=== PATIENT | female | born 1955 | race Caucasian/White ===

== ENCOUNTER 2018-09-22 03:06 | Observation (INO) ==
[2018-09-22] MEDS ORDERED: SODIUM CHLORIDE 0.9% 1,000 ML IV STA (03:38)
[2018-09-22 04:23] LABS: Basophils % 0.3 % (0.0-0.8); Eosinophils # 0.2 10*3/uL (0.0-0.87); Eosinophils % 1.7 % (0.00-10.9); Hematocrit 34.3 VOL% (35.7-47.0); Immature Granulocytes % 1.1 %; Immature Granulocytes Absolute 0.14 #; Lymphocytes # 3.5 10*3/uL (1.4-4.0); Lymphocytes % 27.7 % (21.3-54.2); Mean Corpuscular Volume 117.5 FL (87-102); Mean Platelet Volume 10.8 FL (9.6-12.0); Monocytes % 5.1 % (1.7-12.7); Neutrophils % 64.1 % (38.7-73.9); Platelet Count 101 T/CUMM (130-400); Red Blood Count 2.92 MC/CUMM (3.8-5.5); Red Cell Distribution Width 15.3 % (9.3-17.3); White Blood Count 12.8 T/CUMM (4-12)
[2018-09-22 04:27] LABS: INR 1.1; PT Patient Result 11.4 SECS; Partial Thromboplastin Time 31.3 SECS (0-40)
[2018-09-22 04:36] LABS: Albumin 3.3 G/DL (3.4-5.0); Bilirubin,Total 1.2 MG/DL (0.2-1.0); Calcium 8.8 MG/DL (8.5-10.1); Total Protein 7.8 G/DL (6.4-8.3)
[2018-09-22] MEDS ORDERED: POTASSIUM CHLORIDE 20 MEQ TABLET PO STA (04:40)
[2018-09-22] MEDS ORDERED: MORPHINE 4 MG/1 ML VIAL IV PRN (05:53)
[2018-09-22] MEDS ORDERED: POTASSIUM CHLORIDE RIDER 10 MEQ in PREMIX 1 EACH IV PRN (05:53)
[2018-09-22] MEDS ORDERED: ONDANSETRON 4 MG/2 ML VIAL IV PRN (05:53)
[2018-09-22 06:22] LABS: Albumin 3.5 G/DL (3.4-5.0); Bilirubin,Direct 0.66 MG/DL (0.0-0.20); Bilirubin,Indirect 0.5 MG/DL (0.0-1.0); Bilirubin,Total 1.2 MG/DL (0.2-1.0); Total Protein 7.8 G/DL (6.4-8.3)
[2018-09-22 07:10] LABS: Hepatitis B Core IgM Quant 0.09 Index; Hepatitis B Surface Ag Quant < 0.10 Index; Hepatitis B Surface Ag Result Negative (Negative); Hepatitis C Virus Ab Result Negative (Negative)
[2018-09-22] MEDS: SODIUM CHLORIDE 0.9% 1,000 ML IV SCH ×2 (07:49→20:43)
[2018-09-22 08:27] LABS: Basophils # 0.1 10*3/uL (0.0-0.2); Basophils % 0.6 % (0.0-0.8); Eosinophils # 0.2 10*3/uL (0.0-0.87); Eosinophils % 1.8 % (0.00-10.9); Hematocrit 32.4 VOL% (35.7-47.0); Immature Granulocytes % 1.1 %; Immature Granulocytes Absolute 0.11 #; Lymphocytes # 2.3 10*3/uL (1.4-4.0); Lymphocytes % 23.1 % (21.3-54.2); Mean Corpuscular Volume 118.7 FL (87-102); Mean Platelet Volume 10.4 FL (9.6-12.0); Monocytes % 5.9 % (1.7-12.7); Neutrophils % 67.5 % (38.7-73.9); Platelet Count 92 T/CUMM (130-400); Red Blood Count 2.73 MC/CUMM (3.8-5.5); Red Cell Distribution Width 15.4 % (9.3-17.3); White Blood Count 10.1 T/CUMM (4-12)
[2018-09-22] MEDS ORDERED: LORazepam 2 MG/1 ML VIAL IV PRN (08:58)
[2018-09-22 09:21] LABS: Albumin 3.2 G/DL (3.4-5.0); Bilirubin,Direct 0.69 MG/DL (0.0-0.20); Bilirubin,Indirect 0.6 MG/DL (0.0-1.0); Bilirubin,Total 1.3 MG/DL (0.2-1.0); Calcium 8.5 MG/DL (8.5-10.1); Osmolality,Calculated 276.4 MOS/KG (273-304); Total Protein 7.2 G/DL (6.4-8.3)
[2018-09-22] MEDS: THIAMINE 100 MG TABLET PO SCH (09:41)
[2018-09-22] MEDS: PANTOPRAZOLE 40 MG VIAL IV SCH ×2 (09:41→20:43)
[2018-09-22] MEDS: MULTIVITAMIN (CENTRUM) TABLET PO SCH (09:41)
[2018-09-22] MEDS: NICOTINE 21 MG/24 HR PATCH TRANSDERM PRN (09:41)
[2018-09-22] MEDS: FOLIC ACID 1 MG TABLET PO SCH (09:41)
[2018-09-22 10:51] LABS: % Iron Saturation 39.5 % (18-50)
[2018-09-22 11:11] LABS: Barbiturates Screen,Urine Negative (Negative); Benzodiazepines Screen,Urine Negative (Negative); Cannabinoid Screen,Urine Negative (Negative); Opiate Screen,Urine Negative (Negative); Phencyclidine Screen,Urine Negative (Negative)
[2018-09-22] MEDS: POLYETHYLENE GLYCOL POWDER 17 GM PACK PO SCH ×2 (15:04→20:44)
[2018-09-22 15:50] LABS: Basophils % 0.3 % (0.0-0.8); Eosinophils # 0.1 10*3/uL (0.0-0.87); Eosinophils % 1.2 % (0.00-10.9); Hematocrit 32.7 VOL% (35.7-47.0); Hemoglobin 11.5 GM/DL (12.0-16.0); Immature Granulocytes % 0.9 %; Immature Granulocytes Absolute 0.09 #; Lymphocytes # 1.6 10*3/uL (1.4-4.0); Mean Corpuscular HGB Conc 35.2 GM/DL (32-36); Mean Corpuscular Volume 117.6 FL (87-102); Mean Platelet Volume 11.2 FL (9.6-12.0); Monocytes % 6.1 % (1.7-12.7); Neutrophils % 75.5 % (38.7-73.9); Platelet Count 87 T/CUMM (130-400); Red Blood Count 2.78 MC/CUMM (3.8-5.5); Red Cell Distribution Width 15.3 % (9.3-17.3); White Blood Count 10.2 T/CUMM (4-12)
[2018-09-22 16:27] LABS: Lymphocytes 19 % (20-55); Platelet Estimate Decreased; Segmented Neutrophils 74 % (50-85); Total Cells Counted 100
[2018-09-22 16:33] LABS: Macrocytosis 1+
[2018-09-22 16:35] LABS: Target Cells Slight
[2018-09-22 21:20] LABS: Basophils % 0.3 % (0.0-0.8); Eosinophils # 0.1 10*3/uL (0.0-0.87); Eosinophils % 1.4 % (0.00-10.9); Hematocrit 33.1 VOL% (35.7-47.0); Hemoglobin 11.1 GM/DL (12.0-16.0); Immature Granulocytes % 1.1 %; Lymphocytes # 1.9 10*3/uL (1.4-4.0); Mean Corpuscular HGB Conc 33.5 GM/DL (32-36); Mean Corpuscular Volume 118.6 FL (87-102); Mean Platelet Volume 10.6 FL (9.6-12.0); Neutrophils % 71.2 % (38.7-73.9); Platelet Count 83 T/CUMM (130-400); Red Blood Count 2.79 MC/CUMM (3.8-5.5); Red Cell Distribution Width 15.4 % (9.3-17.3); White Blood Count 9.3 T/CUMM (4-12)
[2018-09-22 21:40] LABS: Eosinophils 1 % (0-10); Lymphocytes 24 % (20-55); Segmented Neutrophils 68 % (50-85); Total Cells Counted 100
[2018-09-22 21:42] LABS: Macrocytosis 1+; Platelet Estimate Decreased
[2018-09-22 21:43] LABS: Hypochromasia Slight
[2018-09-23 07:41] LABS: Basophils % 0.5 % (0.0-0.8); Eosinophils # 0.2 10*3/uL (0.0-0.87); Eosinophils % 1.7 % (0.00-10.9); Hematocrit 32.4 VOL% (35.7-47.0); Immature Granulocytes Absolute 0.09 #; Lymphocytes % 23.4 % (21.3-54.2); Mean Corpuscular Volume 119.1 FL (87-102); Mean Platelet Volume 10.9 FL (9.6-12.0); Monocytes % 6.7 % (1.7-12.7); Neutrophils % 66.7 % (38.7-73.9); Platelet Count 86 T/CUMM (130-400); Red Blood Count 2.72 MC/CUMM (3.8-5.5); Red Cell Distribution Width 15.5 % (9.3-17.3); White Blood Count 8.6 T/CUMM (4-12)
[2018-09-23 08:01] LABS: Calcium 8.6 MG/DL (8.5-10.1); Osmolality,Calculated 269.8 MOS/KG (273-304)
[2018-09-23] MEDS: SODIUM CHLORIDE 0.9% 1,000 ML IV SCH ×2 (08:54→21:28)
[2018-09-23] MEDS: FOLIC ACID 1 MG TABLET PO SCH (08:54)
[2018-09-23] MEDS: THIAMINE 100 MG TABLET PO SCH (08:55)
[2018-09-23] MEDS: MULTIVITAMIN (CENTRUM) TABLET PO SCH (08:55)
[2018-09-23] MEDS: BISACODYL 5 MG TABLET PO SCH ×2 (08:55→16:21)
[2018-09-23] MEDS: NICOTINE 21 MG/24 HR PATCH TRANSDERM PRN (08:55)
[2018-09-23] MEDS: PANTOPRAZOLE 40 MG VIAL IV SCH ×2 (08:57→21:24)
[2018-09-23] MEDS: POLYETHYLENE GLYCOL POWDER 17 GM PACK PO SCH (09:00)
[2018-09-23] MEDS ORDERED: LORazepam 2 MG/1 ML VIAL IV PRN (09:09)
[2018-09-23] MEDS ORDERED: POLYETHYLENE GLYCOL POWDER 255 GM BOTTLE PO ONE (18:00)
[2018-09-23] MEDS ORDERED: MAGNESIUM CITRATE 300 ML BOTTLE PO ONE (21:00)
[2018-09-24] MEDS: BISACODYL 5 MG TABLET PO SCH (00:40)
[2018-09-24] MEDS ORDERED: MIDAZOLAM 2 MG/2 ML VIAL ONE (08:28)
[2018-09-24] MEDS ORDERED: PROPOFOL 200 MG/20 ML VIAL IV ONE (09:00)
[2018-09-24] MEDS ORDERED: LIDOCAINE 100 MG/5 ML SYRINGE ONE (09:00)
[2018-09-24] MEDS: SODIUM CHLORIDE 0.9% 1,000 ML IV SCH (09:18)
[2018-09-24] MEDS: PANTOPRAZOLE 40 MG VIAL IV SCH (09:57)
[2018-09-24] MEDS: THIAMINE 100 MG TABLET PO SCH (09:59)
[2018-09-24] MEDS: MULTIVITAMIN (CENTRUM) TABLET PO SCH (09:59)
[2018-09-24] MEDS: FOLIC ACID 1 MG TABLET PO SCH (09:59)
[2018-09-24] MEDS ORDERED: DIAZEPAM 5 MG TABLET PO ONE (10:38)
[2018-09-24 11:38] VITALS: BP 132/54
[2018-09-26 14:51] LABS: Mitochondrial Antibody (M2) <0.1 U
== END 2018-09-24 15:27 | disposition home or self-care (01) ==
LOC: EDBD → EDUNIT# → N.EDINP 03:06 → N.ED 03:06 → N.5E 06:09
PROVIDERS: ADMIT Internal Medicine; ATTEND Internal Medicine

== ENCOUNTER 2019-02-13 06:21 | Inpatient (IN) ==
[2019-02-13] MEDS ORDERED: ONDANSETRON 4 MG/2 ML VIAL IV STA (07:07)
[2019-02-13] MEDS ORDERED: PANTOPRAZOLE 40 MG VIAL IV STA (07:07)
[2019-02-13] MEDS ORDERED: SODIUM CHLORIDE 0.9% 1,000 ML IV STA (07:07)
[2019-02-13 07:17] LABS: Basophils % 0.3 % (0.0-0.8); Eosinophils # 0.2 10*3/uL (0.0-0.87); Eosinophils % 1.8 % (0.00-10.9); Hematocrit 24.1 VOL% (35.7-47.0); Immature Granulocytes % 0.5 %; Immature Granulocytes Absolute 0.05 #; Lymphocytes # 2.2 10*3/uL (1.4-4.0); Lymphocytes % 22.7 % (21.3-54.2); Mean Corpuscular HGB Conc 33.2 GM/DL (32-36); Mean Corpuscular Volume 116.4 FL (87-102); Mean Platelet Volume 11.4 FL (9.6-12.0); Neutrophils % 66.7 % (38.7-73.9); Platelet Count 108 T/CUMM (130-400); Red Blood Count 2.07 MC/CUMM (3.8-5.5); Red Cell Distribution Width 14.3 % (9.3-17.3); White Blood Count 9.7 T/CUMM (4-12)
[2019-02-13 07:29] LABS: Albumin 2.8 G/DL (3.4-5.0); Bilirubin,Total 2.3 MG/DL (0.2-1.0); Calcium 8.7 MG/DL (8.5-10.1); Osmolality,Calculated 285.4 MOS/KG (273-304); Total Protein 6.6 G/DL (6.4-8.3)
[2019-02-13 07:36] LABS: Hypochromasia 1+; Platelet Estimate Decreased
[2019-02-13] MEDS ORDERED: ONDANSETRON 4 MG/2 ML VIAL IV PRN (09:07)
[2019-02-13] MEDS ORDERED: NICOTINE 21 MG/24 HR PATCH TRANSDERM PRN (09:07)
[2019-02-13] MEDS ORDERED: LORazepam 1 MG TABLET PO PRN (09:12)
[2019-02-13 09:41] LABS: % Iron Saturation 86.9 % (18-50)
[2019-02-13 09:57] LABS: INR 1.5; PT Patient Result 16.1 SECS (9.6-12.2); Partial Thromboplastin Time 29.2 SECS (20.8-36.0)
[2019-02-13 10:22] LABS: Folate 3.2 NG/ML (5.4-24.0)
[2019-02-13] MEDS ORDERED: AMOXICILLIN 500 MG CAPSULE PO SCH ×2 (14:00→21:00)
[2019-02-13] MEDS: PANTOPRAZOLE 40 MG VIAL IV SCH ×2 (14:39→21:44)
[2019-02-13] MEDS: GABAPENTIN 300 MG CAPSULE PO SCH ×2 (14:42→21:44)
[2019-02-13] MEDS: THIAMINE 200 MG/2 ML VIAL IV SCH (14:44)
[2019-02-13] MEDS ORDERED: INFLUENZA VIRUS VACCINE 0.5 ML SYRINGE IM ONE (14:54)
[2019-02-13 15:29] LABS: Hematocrit 27.4 VOL% (35.7-47.0)
[2019-02-13] MEDS ORDERED: SODIUM CHLORIDE 0.9% 1,000 ML IV PRN (18:55)
[2019-02-13] MEDS ORDERED: CLARITHROMYCIN 500 MG TABLET PO SCH (21:00)
[2019-02-13] MEDS: ZALEPLON 5 MG CAPSULE PO SCH (21:44)
[2019-02-13 22:13] LABS: Hematocrit 25.7 VOL% (35.7-47.0); Hemoglobin 8.6 GM/DL (12.0-16.0)
[2019-02-14 05:20] LABS: Basophils # 0.1 10*3/uL (0.0-0.2); Basophils % 0.4 % (0.0-0.8); Eosinophils # 0.4 10*3/uL (0.0-0.87); Eosinophils % 2.7 % (0.00-10.9); Hematocrit 24.8 VOL% (35.7-47.0); Hemoglobin 8.3 GM/DL (12.0-16.0); Immature Granulocytes % 0.6 %; Immature Granulocytes Absolute 0.09 #; Lymphocytes # 3.4 10*3/uL (1.4-4.0); Lymphocytes % 24.3 % (21.3-54.2); Mean Corpuscular HGB Conc 33.5 GM/DL (32-36); Mean Corpuscular Volume 103.3 FL (87-102); Mean Platelet Volume 11.9 FL (9.6-12.0); Monocytes % 5.3 % (1.7-12.7); Neutrophils % 66.7 % (38.7-73.9); Platelet Count 105 T/CUMM (130-400); Red Cell Distribution Width 22.7 % (9.3-17.3); White Blood Count 13.9 T/CUMM (4-12)
[2019-02-14 05:36] LABS: Alanine Aminotransferase < 9 U/L (13-56); Albumin 2.7 G/DL (3.4-5.0); Alkaline Phosphatase 112 U/L (45-117); Aspartate Amino Transferase 35 U/L (0-37); Blood Urea Nitrogen 57 MG/DL (7-18); Calcium 8.7 MG/DL (8.5-10.1); Estimated Glom Filtration Rate 36 ML/MIN; Glucose 100 MG/DL (74-106); Osmolality,Calculated 301.8 MOS/KG (273-304); Total Protein 5.7 G/DL (6.4-8.3)
[2019-02-14 06:06] LABS: Platelet Estimate Decreased
[2019-02-14 06:07] LABS: Polychromasia Few
[2019-02-14] MEDS: LACTATED RINGERS 1,000 ML IV SCH (08:50)
[2019-02-14] MEDS ORDERED: LACTULOSE 20 GM/30 ML UDCUP PO SCH (09:00)
[2019-02-14] MEDS ORDERED: PHENYLEPHRINE 1 MG/10 ML SYRINGE IV ONE (09:24)
[2019-02-14] MEDS ORDERED: ETOMIDATE 20 MG/10 ML VIAL IV ONE (09:24)
[2019-02-14] MEDS ORDERED: PROPOFOL 200 MG/20 ML VIAL IV ONE (09:24)
[2019-02-14] MEDS ORDERED: LIDOCAINE 100 MG/5 ML SYRINGE ONE (09:24)
[2019-02-14] MEDS ORDERED: MAGNESIUM SULF RIDER 2 GM in PREMIX 1 EACH IV PRN (10:39)
[2019-02-14] MEDS ORDERED: MAGNESIUM SULF RIDER 4 GM in PREMIX 1 EACH IV PRN (10:39)
[2019-02-14] MEDS: MULTIVITAMIN (CENTRUM) TABLET PO SCH (10:48)
[2019-02-14] MEDS: THIAMINE 200 MG/2 ML VIAL IV SCH (10:48)
[2019-02-14] MEDS: FOLIC ACID 1 MG TABLET PO SCH (10:48)
[2019-02-14] MEDS: GABAPENTIN 300 MG CAPSULE PO SCH ×3 (10:48→21:41)
[2019-02-14] MEDS: PANTOPRAZOLE 40 MG VIAL IV SCH ×2 (10:48→21:41)
[2019-02-14] MEDS: SODIUM CHLORIDE 0.9% 1,000 ML IV SCH (10:52)
[2019-02-14] MEDS: POTASSIUM CHLORIDE RIDER 10 MEQ in PREMIX 1 EACH IV SCH ×2 (10:53→12:37)
[2019-02-14 11:34] LABS: Hematocrit 22.7 VOL% (35.7-47.0); Hemoglobin 7.4 GM/DL (12.0-16.0)
[2019-02-14 11:45] LABS: INR 1.2; PT Patient Result 13.1 SECS (9.6-12.2)
[2019-02-14 11:47] LABS: INR 1.2; PT Patient Result 12.9 SECS (9.6-12.2)
[2019-02-14 15:21] LABS: Hematocrit 22.2 VOL% (35.7-47.0); Hemoglobin 7.3 GM/DL (12.0-16.0)
[2019-02-14] MEDS ORDERED: SODIUM CHLORIDE 0.9% 1,000 ML IV PRN ×2 (15:21→22:24)
[2019-02-14 21:01] LABS: Hematocrit 21.1 VOL% (35.7-47.0); Hemoglobin 6.9 GM/DL (12.0-16.0)
[2019-02-14] MEDS: ZALEPLON 5 MG CAPSULE PO SCH (21:41)
[2019-02-14] MEDS: LACTULOSE 20 GM/30 ML UDCUP PO SCH (21:41)
[2019-02-15 05:10] LABS: Hematocrit 24.1 VOL% (35.7-47.0); Hemoglobin 7.9 GM/DL (12.0-16.0)
[2019-02-15 05:12] LABS: Basophils % 0.4 % (0.0-0.8); Eosinophils # 0.3 10*3/uL (0.0-0.87); Eosinophils % 3.8 % (0.00-10.9); Hematocrit 24.5 VOL% (35.7-47.0); Hemoglobin 7.9 GM/DL (12.0-16.0); Immature Granulocytes % 0.4 %; Immature Granulocytes Absolute 0.03 #; Lymphocytes # 2.4 10*3/uL (1.4-4.0); Lymphocytes % 31.2 % (21.3-54.2); Mean Corpuscular HGB Conc 32.2 GM/DL (32-36); Mean Corpuscular Volume 103.8 FL (87-102); Mean Platelet Volume 11.3 FL (9.6-12.0); Monocytes % 7.3 % (1.7-12.7); Neutrophils % 56.9 % (38.7-73.9); Platelet Count 74 T/CUMM (130-400); Red Blood Count 2.36 MC/CUMM (3.8-5.5); Red Cell Distribution Width 22.3 % (9.3-17.3); White Blood Count 7.8 T/CUMM (4-12)
[2019-02-15 05:18] LABS: INR 1.2
[2019-02-15 05:36] LABS: Albumin 2.8 G/DL (3.4-5.0); Bilirubin,Total 1.4 MG/DL (0.2-1.0); Calcium 8.2 MG/DL (8.5-10.1); Total Protein 5.8 G/DL (6.4-8.3)
[2019-02-15 05:53] LABS: Hypochromasia 1+; Platelet Estimate Decreased
[2019-02-15] MEDS: LACTATED RINGERS 1,000 ML IV SCH (08:11)
[2019-02-15] MEDS: THIAMINE 200 MG/2 ML VIAL IV SCH (09:46)
[2019-02-15] MEDS: LACTULOSE 20 GM/30 ML UDCUP PO SCH (09:46)
[2019-02-15] MEDS: GABAPENTIN 300 MG CAPSULE PO SCH ×2 (09:46→15:55)
[2019-02-15] MEDS: FOLIC ACID 1 MG TABLET PO SCH (09:46)
[2019-02-15] MEDS: SODIUM CHLORIDE 0.9% 1,000 ML IV SCH (09:52)
[2019-02-15] MEDS: MULTIVITAMIN (CENTRUM) TABLET PO SCH (09:53)
[2019-02-15 09:54] LABS: Hematocrit 27.7 VOL% (35.7-47.0)
[2019-02-15] MEDS: PANTOPRAZOLE 40 MG VIAL IV SCH (11:30)
[2019-02-15 11:50] VITALS: BP 97/45
[2019-02-15] MEDS ORDERED: PANTOPRAZOLE 40 MG TABLET PO SCH (19:00)
== END 2019-02-15 15:21 | disposition home or self-care (01) | DRG 369 ==
LOC: EDBD → EDUNIT# → N.ED 06:21 → N.EDINP 09:07 → N.4E 14:13
PROVIDERS: ADMIT Internal Medicine; ATTEND Internal Medicine

== ENCOUNTER 2020-04-01 04:57 | Inpatient (IN) ==
[2020-04-01] MEDS ORDERED: MEPERIDINE 25 MG/1 ML VIAL IV STA (05:10)
[2020-04-01] MEDS ORDERED: KETOROLAC 30 MG/1 ML VIAL IV STA (05:10)
[2020-04-01] MEDS ORDERED: ONDANSETRON 4 MG/2 ML VIAL IV STA (05:10)
[2020-04-01] MEDS ORDERED: NALOXONE 0.4 MG/ML VIAL ONE (06:55)
[2020-04-01] MEDS ORDERED: NALOXONE 0.4 MG/ML VIAL IV STA (06:57)
[2020-04-01] MEDS ORDERED: SODIUM CHLORIDE 0.9% 1,000 ML IV STA (07:11)
[2020-04-01 07:49] LABS: Albumin 2.3 G/DL (3.4-5.0); Bilirubin,Total 2.5 MG/DL (0.2-1.0); Calcium 7.5 MG/DL (8.5-10.1); Osmolality,Calculated 288.5 MOS/KG (273-304); Total Protein 5.9 G/DL (6.4-8.3)
[2020-04-01 08:06] LABS: Basophils % 0.1 % (0.0-0.8); Eosinophils # 0.1 10*3/uL (0.0-0.87); Eosinophils % 0.9 % (0.00-10.9); Immature Granulocytes % 1.2 %; Immature Granulocytes Absolute 0.14 #; Lymphocytes # 1.2 10*3/uL (1.4-4.0); Lymphocytes % 10.4 % (21.3-54.2); Mean Corpuscular HGB Conc 32.3 GM/DL (32-36); Mean Corpuscular Volume 109.2 FL (87-102); Mean Platelet Volume 11.8 FL (9.6-12.0); Monocytes % 11.1 % (1.7-12.7); Neutrophils % 76.3 % (38.7-73.9); Red Blood Count 1.42 MC/CUMM (3.8-5.5); Red Cell Distribution Width 18.5 % (9.3-17.3); White Blood Count 11.8 T/CUMM (4-12)
[2020-04-01 08:07] LABS: INR 1.6; PT Patient Result 16.4 SECS (9.8-11.9); Partial Thromboplastin Time 39.2 SECS (23.9-33.8)
[2020-04-01 08:12] LABS: Hematocrit 15.5 VOL% (35.7-47.0); Platelet Count 56 T/CUMM (130-400)
[2020-04-01 08:25] LABS: Band Neutrophils 5 % (0-10); Hypochromasia 1+; Lymphocytes 9 % (20-55); Segmented Neutrophils 82 % (50-85); Total Cells Counted 100
[2020-04-01 08:26] LABS: Anisocytosis 1+; Microcytosis 1+; Ovalocytes Slight; Platelet Estimate Decreased
[2020-04-01] MEDS ORDERED: SODIUM CHLORIDE 0.9% 1,000 ML IV PRN (08:29)
[2020-04-01] MEDS ORDERED: MORPHINE 4 MG/1 ML VIAL IV PRN (09:25)
[2020-04-01] MEDS ORDERED: ONDANSETRON 4 MG/2 ML VIAL IV PRN (09:25)
[2020-04-01] MEDS ORDERED: DOPamine 800 MG/250 ML PREMIX IV ONE (09:52)
[2020-04-01] MEDS: DOPamine 800 MG/250 ML PREMIX IV PRN (10:29)
[2020-04-01] MEDS: LACTATED RINGERS 1,000 ML IV SCH ×2 (10:32→23:58)
[2020-04-01] MEDS: PANTOPRAZOLE 40 MG VIAL IV SCH ×2 (10:32→23:00)
[2020-04-01 14:53] LABS: Basophils % 0.1 % (0.0-0.8); Eosinophils # 0.1 10*3/uL (0.0-0.87); Eosinophils % 0.3 % (0.00-10.9); Hematocrit 27.6 VOL% (35.7-47.0); Immature Granulocytes % 1.6 %; Immature Granulocytes Absolute 0.37 #; Lymphocytes # 1.9 10*3/uL (1.4-4.0); Lymphocytes % 8.4 % (21.3-54.2); Mean Corpuscular HGB Conc 32.6 GM/DL (32-36); Mean Corpuscular Volume 100.4 FL (87-102); Mean Platelet Volume 12.1 FL (9.6-12.0); Monocytes % 9.7 % (1.7-12.7); Neutrophils % 79.9 % (38.7-73.9); Platelet Count 71 T/CUMM (130-400); Red Blood Count 2.75 MC/CUMM (3.8-5.5); Red Cell Distribution Width 18.8 % (9.3-17.3); White Blood Count 22.9 T/CUMM (4-12)
[2020-04-01 16:51] LABS: Bacteria,Urine Many /HPF (Few); Bilirubin,Urine Negative (Negative); Blood, Urine Small mg/dL (Negative); Glucose,Urine (UA) Negative (Negative); Ketones,Urine Negative (Negative); Nitrite,Urine Negative (Negative); Protein,Urine Negative; Squamous Epithelial Cell,Urine Occasional /HPF (0-10); Urine Appearance CLOUDY (Clear); Urine Color Yellow (Yellow); Urine Specific Gravity 1.008 (1.001-1.035); Urine Urobilinogen < 2.0 EU/DL (0.2-1.0); WBC,Urine 26 /HPF (0-6)
[2020-04-01] MEDS ORDERED: SODIUM CHLORIDE 0.9% 100 ML IV ONE (16:51)
[2020-04-01] MEDS: cefTRIAXone 1,000 MG in SYRINGE 1 EACH IV SCH (16:59)
[2020-04-01] MEDS: LACTULOSE 20 GM/30 ML UDCUP PO SCH (23:00)
[2020-04-02 06:20] LABS: Basophils % 0.2 % (0.0-0.8); Eosinophils # 0.5 10*3/uL (0.0-0.87); Eosinophils % 2.5 % (0.00-10.9); Hematocrit 29.9 VOL% (35.7-47.0); Hemoglobin 9.9 GM/DL (12.0-16.0); Immature Granulocytes % 1.2 %; Immature Granulocytes Absolute 0.22 #; Lymphocytes # 1.9 10*3/uL (1.4-4.0); Lymphocytes % 10.1 % (21.3-54.2); Mean Corpuscular HGB Conc 33.1 GM/DL (32-36); Mean Corpuscular Volume 98.4 FL (87-102); Mean Platelet Volume 11.3 FL (9.6-12.0); Monocytes % 11.5 % (1.7-12.7); Neutrophils % 74.5 % (38.7-73.9); Red Blood Count 3.04 MC/CUMM (3.8-5.5); Red Cell Distribution Width 19.8 % (9.3-17.3); White Blood Count 19.1 T/CUMM (4-12)
[2020-04-02 06:22] LABS: Platelet Count 85 T/CUMM (130-400)
[2020-04-02 06:32] LABS: INR 1.5; PT Patient Result 15.9 SECS (9.8-11.9)
[2020-04-02 06:38] LABS: Hypochromasia 1+; Microcytosis 1+; Platelet Estimate Decreased
[2020-04-02 06:50] LABS: Albumin 2.7 G/DL (3.4-5.0); Bilirubin,Total 2.6 MG/DL (0.2-1.0); Calcium 8.3 MG/DL (8.5-10.1); Osmolality,Calculated 277.8 MOS/KG (273-304); Potassium 4.5 MMOL/L (3.5-5.1); Total Protein 6.9 G/DL (6.4-8.3)
[2020-04-02] MEDS: DOPamine 800 MG/250 ML PREMIX IV PRN ×2 (06:52→20:18)
[2020-04-02] MEDS ORDERED: VITAMIN E 400 UNIT CAPSULE PO SCH (09:00)
[2020-04-02] MEDS: LACTULOSE 20 GM/30 ML UDCUP PO SCH ×3 (10:48→21:04)
[2020-04-02] MEDS: PANTOPRAZOLE 40 MG VIAL IV SCH ×2 (10:48→21:03)
[2020-04-02] MEDS: MULTIVITAMIN (CENTRUM) TABLET PO SCH (10:48)
[2020-04-02] MEDS: THIAMINE 100 MG TABLET PO SCH (10:48)
[2020-04-02] MEDS: LACTATED RINGERS 1,000 ML IV SCH ×2 (13:52→19:01)
[2020-04-02] MEDS ORDERED: FUROSEMIDE 40 MG/4 ML VIAL IV ONE (16:35)
[2020-04-02] MEDS: cefTRIAXone 1,000 MG in SYRINGE 1 EACH IV SCH (17:30)
[2020-04-03 02:35] LABS: Hematocrit 28.8 VOL% (35.7-47.0); Hemoglobin 9.5 GM/DL (12.0-16.0)
[2020-04-03 04:20] LABS: Basophils % 0.2 % (0.0-0.8); Eosinophils # 0.3 10*3/uL (0.0-0.87); Eosinophils % 1.8 % (0.00-10.9); Hematocrit 28.3 VOL% (35.7-47.0); Hemoglobin 9.3 GM/DL (12.0-16.0); Immature Granulocytes % 1.3 %; Immature Granulocytes Absolute 0.23 #; Lymphocytes # 1.9 10*3/uL (1.4-4.0); Lymphocytes % 10.2 % (21.3-54.2); Mean Corpuscular HGB Conc 32.9 GM/DL (32-36); Mean Corpuscular Volume 98.6 FL (87-102); Mean Platelet Volume 11.6 FL (9.6-12.0); Monocytes % 8.9 % (1.7-12.7); Neutrophils % 77.6 % (38.7-73.9); Platelet Count 98 T/CUMM (130-400); Red Blood Count 2.87 MC/CUMM (3.8-5.5); Red Cell Distribution Width 19.9 % (9.3-17.3); White Blood Count 18.2 T/CUMM (4-12)
[2020-04-03 04:32] LABS: Albumin 2.5 G/DL (3.4-5.0); Bilirubin,Total 2.8 MG/DL (0.2-1.0); Calcium 8.4 MG/DL (8.5-10.1); Osmolality,Calculated 277.5 MOS/KG (273-304); Potassium 4.2 MMOL/L (3.5-5.1); Total Protein 6.5 G/DL (6.4-8.3)
[2020-04-03 05:02] LABS: Hypochromasia 1+; Microcytosis 1+; Ovalocytes Slight
[2020-04-03 05:03] LABS: Platelet Estimate Decreased
[2020-04-03] MEDS: LACTULOSE 20 GM/30 ML UDCUP PO SCH ×4 (09:01→21:24)
[2020-04-03] MEDS ORDERED: LIDOCAINE 2% 5 ML VIAL ONE (09:04)
[2020-04-03] MEDS ORDERED: propofoL 200 MG/20 ML VIAL IV ONE (09:04)
[2020-04-03] MEDS: PANTOPRAZOLE 40 MG VIAL IV SCH ×2 (10:05→21:26)
[2020-04-03] MEDS: DOPamine 800 MG/250 ML PREMIX IV PRN (13:00)
[2020-04-03] MEDS: MULTIVITAMIN (CENTRUM) TABLET PO SCH (14:00)
[2020-04-03] MEDS: THIAMINE 100 MG TABLET PO SCH (14:01)
[2020-04-03] MEDS: cefTRIAXone 1,000 MG in SYRINGE 1 EACH IV SCH (17:56)
[2020-04-04] MEDS: ALPRAZolam 0.25 MG TABLET PO PRN ×2 (00:51→08:31)
[2020-04-04 04:28] LABS: Basophils # 0.1 10*3/uL (0.0-0.2); Basophils % 0.3 % (0.0-0.8); Eosinophils # 0.7 10*3/uL (0.0-0.87); Eosinophils % 2.5 % (0.00-10.9); Hematocrit 29.8 VOL% (35.7-47.0); Hemoglobin 9.4 GM/DL (12.0-16.0); Immature Granulocytes % 2.7 %; Immature Granulocytes Absolute 0.71 #; Lymphocytes % 11.4 % (21.3-54.2); Mean Corpuscular HGB Conc 31.5 GM/DL (32-36); Mean Corpuscular Volume 101.4 FL (87-102); Mean Platelet Volume 10.7 FL (9.6-12.0); Monocytes % 10.2 % (1.7-12.7); Neutrophils % 72.9 % (38.7-73.9); Red Blood Count 2.94 MC/CUMM (3.8-5.5); Red Cell Distribution Width 19.9 % (9.3-17.3)
[2020-04-04 04:33] LABS: Platelet Count 123 T/CUMM (130-400); White Blood Count 26.4 T/CUMM (4-12)
[2020-04-04 05:04] LABS: Band Neutrophils 2 % (0-10); Eosinophils 4 % (0-10); Hypochromasia 1+; Lymphocytes 7 % (20-55); Segmented Neutrophils 80 % (50-85); Total Cells Counted 100
[2020-04-04 05:05] LABS: Anisocytosis 1+; Microcytosis 1+; Ovalocytes Slight
[2020-04-04] MEDS: THIAMINE 100 MG TABLET PO SCH (08:31)
[2020-04-04] MEDS: ALBUMIN 25% 25 GM in PREMIX 1 EACH IV SCH ×3 (08:31→22:49)
[2020-04-04] MEDS: MULTIVITAMIN (CENTRUM) TABLET PO SCH (08:32)
[2020-04-04] MEDS: LACTULOSE 20 GM/30 ML UDCUP PO SCH ×5 (08:32→22:50)
[2020-04-04] MEDS: PANTOPRAZOLE 40 MG VIAL IV SCH (08:34)
[2020-04-04] MEDS: cefTRIAXone 1,000 MG in SYRINGE 1 EACH IV SCH (16:03)
[2020-04-05] MEDS ORDERED: SODIUM CHLORIDE 0.9% 500 ML IV ONE (01:53)
[2020-04-05] MEDS: ALPRAZolam 0.25 MG TABLET PO PRN (03:55)
[2020-04-05] MEDS: ALBUMIN 25% 25 GM in PREMIX 1 EACH IV SCH (04:34)
[2020-04-05 06:09] LABS: Basophils # 0.1 10*3/uL (0.0-0.2); Basophils % 0.2 % (0.0-0.8); Eosinophils # 0.4 10*3/uL (0.0-0.87); Hematocrit 27.2 VOL% (35.7-47.0); Hemoglobin 8.5 GM/DL (12.0-16.0); Immature Granulocytes % 2.2 %; Immature Granulocytes Absolute 0.46 #; Lymphocytes # 2.3 10*3/uL (1.4-4.0); Lymphocytes % 10.9 % (21.3-54.2); Mean Corpuscular HGB Conc 31.3 GM/DL (32-36); Mean Corpuscular Volume 103.8 FL (87-102); Mean Platelet Volume 10.5 FL (9.6-12.0); Monocytes % 8.3 % (1.7-12.7); Neutrophils % 76.4 % (38.7-73.9); Platelet Count 107 T/CUMM (130-400); Red Blood Count 2.62 MC/CUMM (3.8-5.5); Red Cell Distribution Width 20.1 % (9.3-17.3); White Blood Count 21.1 T/CUMM (4-12)
[2020-04-05 06:40] LABS: Eosinophils 1 % (0-10); Lymphocytes 9 % (20-55); Platelet Estimate Normal; Segmented Neutrophils 87 % (50-85)
[2020-04-05 06:41] LABS: Hypochromasia Slight; Macrocytosis Slight; Total Cells Counted 100
[2020-04-05 07:14] LABS: Albumin 3.8 G/DL (3.4-5.0); Bilirubin,Total 1.9 MG/DL (0.2-1.0); Osmolality,Calculated 286.8 MOS/KG (273-304); Potassium 4.3 MMOL/L (3.5-5.1); Total Protein 6.7 G/DL (6.4-8.3)
[2020-04-05] MEDS: LACTULOSE 20 GM/30 ML UDCUP PO SCH ×4 (09:18→21:45)
[2020-04-05] MEDS: MULTIVITAMIN (CENTRUM) TABLET PO SCH (09:18)
[2020-04-05] MEDS: THIAMINE 100 MG TABLET PO SCH (09:18)
[2020-04-05] MEDS: PANTOPRAZOLE 40 MG TABLET PO SCH (09:18)
[2020-04-05] MEDS: DEXTROSE 5% 1,000 ML IV SCH (10:36)
[2020-04-05] MEDS: cefTRIAXone 1,000 MG in SYRINGE 1 EACH IV SCH (17:32)
[2020-04-05] MEDS: RIFAXIMIN 550 MG TABLET PO SCH (21:46)
[2020-04-06] MEDS: DEXTROSE 5% 1,000 ML IV SCH ×4 (00:29→18:17)
[2020-04-06] MEDS: ALPRAZolam 0.25 MG TABLET PO PRN (04:16)
[2020-04-06 06:36] LABS: Basophils % 0.2 % (0.0-0.8); Eosinophils # 0.3 10*3/uL (0.0-0.87); Eosinophils % 1.4 % (0.00-10.9); Hematocrit 25.7 VOL% (35.7-47.0); Hemoglobin 8.1 GM/DL (12.0-16.0); Immature Granulocytes % 2.9 %; Immature Granulocytes Absolute 0.59 #; Lymphocytes # 2.2 10*3/uL (1.4-4.0); Mean Corpuscular HGB Conc 31.5 GM/DL (32-36); Mean Corpuscular Volume 102.8 FL (87-102); Mean Platelet Volume 10.6 FL (9.6-12.0); Monocytes % 9.2 % (1.7-12.7); Neutrophils % 75.3 % (38.7-73.9); Platelet Count 138 T/CUMM (130-400); White Blood Count 20.2 T/CUMM (4-12)
[2020-04-06 07:07] LABS: Albumin 2.9 G/DL (3.4-5.0); Bilirubin,Total 2.7 MG/DL (0.2-1.0); Calcium 8.6 MG/DL (8.5-10.1); Osmolality,Calculated 282.4 MOS/KG (273-304); Potassium 3.5 MMOL/L (3.5-5.1); Total Protein 6.2 G/DL (6.4-8.3)
[2020-04-06 07:15] LABS: Band Neutrophils 1 % (0-10); Eosinophils 1 % (0-10); Lymphocytes 16 % (20-55); Segmented Neutrophils 73 % (50-85); Total Cells Counted 100
[2020-04-06 07:16] LABS: Hypochromasia 1+; Microcytosis 1+
[2020-04-06] MEDS ORDERED: SODIUM CHLORIDE 0.9% 1,000 ML IV PRN (09:14)
[2020-04-06] MEDS ORDERED: ALBUMIN 25% 50 GM in PREMIX 1 EACH IV ONE (09:15)
[2020-04-06] MEDS ORDERED: FUROSEMIDE 40 MG/4 ML VIAL IV ONE (09:41)
[2020-04-06] MEDS: PANTOPRAZOLE 40 MG TABLET PO SCH (09:52)
[2020-04-06] MEDS: RIFAXIMIN 550 MG TABLET PO SCH (09:52)
[2020-04-06] MEDS: MULTIVITAMIN (CENTRUM) TABLET PO SCH (09:52)
[2020-04-06] MEDS: LACTULOSE 20 GM/30 ML UDCUP PO SCH ×4 (09:52→18:15)
[2020-04-06] MEDS: THIAMINE 100 MG TABLET PO SCH (09:52)
[2020-04-06] MEDS ORDERED: HYDROmorphone 2 MG/1 ML VIAL IV ONE ×2 (13:11→16:32)
[2020-04-06 14:22] LABS: ABG Base Excess -8.7 MMOL/L (-2.5-2.5); ABG HCO3 17.4 MMOL/L (20-26); ABG Oxygen Saturation 97.1 % (95-100); ABG PCO2 56.6 MM HG (35-48); ABG TCO2 19.3 MMOL/L (23-27); Allen Test Positive; Pt O2 Delivery Device Venturi Mask
[2020-04-06 14:25] LABS: ABG PH 7.161 (7.35-7.45)
[2020-04-06 14:35] LABS: Bilirubin,Urine Negative (Negative); Blood, Urine Large mg/dL (Negative); Glucose,Urine (UA) Negative (Negative); Ketones,Urine Negative (Negative); Nitrite,Urine Negative (Negative); Protein,Urine 30 MG/DL; Urine Appearance CLOUDY (Clear); Urine Color Amber (Yellow); Urine Specific Gravity 1.012 (1.001-1.035); Urine Urobilinogen < 2.0 EU/DL (0.2-1.0)
[2020-04-06 14:45] LABS: Hyaline Casts,Urine 6 /LPF (0-3); RBC,Urine 9 /HPF (0-4)
[2020-04-06 14:46] LABS: WBC,Urine 9 /HPF (0-6)
[2020-04-06] MEDS ORDERED: NALOXONE 0.4 MG/ML VIAL ONE (16:44)
[2020-04-06] MEDS ORDERED: NALOXONE 0.4 MG/ML VIAL IV ONE (16:45)
[2020-04-06] MEDS: SODIUM CHLORIDE 0.9% 1,000 ML IV SCH (18:10)
[2020-04-07] MEDS: RIFAXIMIN 550 MG TABLET PO SCH ×3 (00:29→20:21)
[2020-04-07] MEDS: LACTULOSE 20 GM/30 ML UDCUP PO SCH ×6 (00:29→20:21)
[2020-04-07 03:58] LABS: Basophils # 0.1 10*3/uL (0.0-0.2); Basophils % 0.3 % (0.0-0.8); Eosinophils # 0.4 10*3/uL (0.0-0.87); Eosinophils % 1.6 % (0.00-10.9); Hematocrit 30.1 VOL% (35.7-47.0); Hemoglobin 9.5 GM/DL (12.0-16.0); Immature Granulocytes % 3.8 %; Immature Granulocytes Absolute 0.89 #; Lymphocytes # 2.6 10*3/uL (1.4-4.0); Lymphocytes % 10.8 % (21.3-54.2); Mean Corpuscular HGB Conc 31.6 GM/DL (32-36); Mean Corpuscular Volume 102.4 FL (87-102); Mean Platelet Volume 10.4 FL (9.6-12.0); Monocytes % 7.5 % (1.7-12.7); Platelet Count 151 T/CUMM (130-400); Red Blood Count 2.94 MC/CUMM (3.8-5.5); Red Cell Distribution Width 19.4 % (9.3-17.3); White Blood Count 23.6 T/CUMM (4-12)
[2020-04-07 04:21] LABS: Band Neutrophils 2 % (0-10); Eosinophils 2 % (0-10); Hypochromasia 1+; Lymphocytes 14 % (20-55); Microcytosis 1+; Ovalocytes Slight; Platelet Estimate Adequate; Segmented Neutrophils 79 % (50-85); Total Cells Counted 100
[2020-04-07 04:25] LABS: Albumin 2.9 G/DL (3.4-5.0); Bilirubin,Total 2.2 MG/DL (0.2-1.0); Calcium 8.8 MG/DL (8.5-10.1); Osmolality,Calculated 283.1 MOS/KG (273-304); Total Protein 6.2 G/DL (6.4-8.3)
[2020-04-07 07:31] LABS: ABG HCO3 18.7 MMOL/L (20-26); ABG Oxygen Saturation 99.1 % (95-100); ABG PCO2 47.5 MM HG (35-48); ABG PH 7.239 (7.35-7.45); ABG TCO2 19.1 MMOL/L (23-27); Allen Test Positive; Pt O2 Delivery Device BIPAP
[2020-04-07] MEDS: THIAMINE 100 MG TABLET PO SCH (09:54)
[2020-04-07] MEDS: MULTIVITAMIN (CENTRUM) TABLET PO SCH (09:54)
[2020-04-07] MEDS: PANTOPRAZOLE 40 MG TABLET PO SCH (09:54)
[2020-04-07] MEDS: SODIUM CHLORIDE 0.9% 1,000 ML IV SCH ×2 (09:54→22:40)
[2020-04-07] MEDS ORDERED: CLORAZEPATE 3.75 MG TABLET PO PRN (13:46)
[2020-04-07] MEDS ORDERED: HALOPERIDOL 1 MG TABLET PO ONE (15:10)
[2020-04-07] MEDS: CLORAZEPATE 7.5 MG TABLET PO PRN (19:15)
[2020-04-07] MEDS: HALOPERIDOL 1 MG TABLET PO PRN (20:21)
[2020-04-07] MEDS: ALPRAZolam 0.25 MG TABLET PO PRN (20:21)
[2020-04-08] MEDS: CLORAZEPATE 7.5 MG TABLET PO PRN (02:16)
[2020-04-08] MEDS: HALOPERIDOL 1 MG TABLET PO PRN (02:16)
[2020-04-08] MEDS ORDERED: LORazepam 2 MG/1 ML VIAL IV ONE (03:07)
[2020-04-08 04:20] LABS: Basophils % 0.2 % (0.0-0.8); Eosinophils # 0.2 10*3/uL (0.0-0.87); Eosinophils % 1.6 % (0.00-10.9); Hematocrit 25.5 VOL% (35.7-47.0); Hemoglobin 8.3 GM/DL (12.0-16.0); Immature Granulocytes % 2.1 %; Immature Granulocytes Absolute 0.27 #; Lymphocytes # 1.7 10*3/uL (1.4-4.0); Lymphocytes % 12.9 % (21.3-54.2); Mean Corpuscular HGB Conc 32.5 GM/DL (32-36); Mean Corpuscular Volume 98.8 FL (87-102); Monocytes % 7.7 % (1.7-12.7); NRBC # 0.02 10*3/uL; Neutrophils % 75.5 % (38.7-73.9); Platelet Count 125 T/CUMM (130-400); Red Blood Count 2.58 MC/CUMM (3.8-5.5); Red Cell Distribution Width 19.4 % (9.3-17.3); White Blood Count 12.9 T/CUMM (4-12)
[2020-04-08 04:38] LABS: Calcium 8.9 MG/DL (8.5-10.1); Osmolality,Calculated 305.1 MOS/KG (273-304); Potassium 3.2 MMOL/L (3.5-5.1)
[2020-04-08 04:42] LABS: Albumin 2.5 G/DL (3.4-5.0); Bilirubin,Total 2.1 MG/DL (0.2-1.0); Calcium 8.6 MG/DL (8.5-10.1); Osmolality,Calculated 302.3 MOS/KG (273-304); Potassium 3.2 MMOL/L (3.5-5.1); Total Protein 5.3 G/DL (6.4-8.3)
[2020-04-08] MEDS: POTASSIUM CHLORIDE RIDER 10 MEQ in PREMIX 1 EACH IV SCH ×2 (08:46→09:46)
[2020-04-08] MEDS: DEXTROSE 5% NACL 0.45% 1,000 ML IV SCH (09:28)
[2020-04-08] MEDS ORDERED: MORPHINE 4 MG/1 ML VIAL IV ONE (09:30)
[2020-04-08] MEDS: THIAMINE 100 MG TABLET PO SCH (11:28)
[2020-04-08] MEDS: MULTIVITAMIN (CENTRUM) TABLET PO SCH (11:28)
[2020-04-08] MEDS: LACTULOSE 20 GM/30 ML UDCUP PO SCH ×4 (11:28→21:28)
[2020-04-08] MEDS: PANTOPRAZOLE 40 MG TABLET PO SCH (11:28)
[2020-04-08] MEDS: RIFAXIMIN 550 MG TABLET PO SCH ×2 (11:28→21:28)
[2020-04-08] MEDS ORDERED: ALPRAZolam 0.5 MG TABLET PO PRN (14:32)
[2020-04-08] MEDS: LORazepam 2 MG/1 ML VIAL IV PRN (15:36)
[2020-04-08] MEDS: MORPHINE 4 MG/1 ML VIAL IV PRN (20:17)
[2020-04-09] MEDS: DEXTROSE 5% NACL 0.45% 1,000 ML IV SCH (01:00)
[2020-04-09] MEDS: LORazepam 2 MG/1 ML VIAL IV PRN (02:50)
[2020-04-09 05:34] LABS: Albumin 2.8 G/DL (3.4-5.0); Bilirubin,Total 1.9 MG/DL (0.2-1.0); Calcium 9.1 MG/DL (8.5-10.1); Osmolality,Calculated 304.9 MOS/KG (273-304); Potassium 3.6 MMOL/L (3.5-5.1)
[2020-04-09] MEDS: MORPHINE 4 MG/1 ML VIAL IV PRN ×2 (06:10→12:10)
[2020-04-09] MEDS: THIAMINE 100 MG TABLET PO SCH (09:10)
[2020-04-09] MEDS: RIFAXIMIN 550 MG TABLET PO SCH (09:10)
[2020-04-09] MEDS: MULTIVITAMIN (CENTRUM) TABLET PO SCH (09:10)
[2020-04-09] MEDS: LACTULOSE 20 GM/30 ML UDCUP PO SCH ×3 (09:10→17:17)
[2020-04-09] MEDS: PANTOPRAZOLE 40 MG TABLET PO SCH (09:10)
[2020-04-09] MEDS: DEXTROSE 5% 1,000 ML IV SCH ×2 (09:18→22:20)
[2020-04-09] MEDS: LACTULOSE 320 GM/480 ML BOTTLE RECTAL SCH (18:35)
[2020-04-09] MEDS: PANTOPRAZOLE 40 MG VIAL IV SCH (21:20)
[2020-04-10] MEDS: LACTULOSE 320 GM/480 ML BOTTLE RECTAL SCH ×5 (00:10→23:27)
[2020-04-10] MEDS: DEXTROSE 5% 1,000 ML IV SCH ×2 (00:42→16:46)
[2020-04-10 05:45] LABS: Basophils # 0.1 10*3/uL (0.0-0.2); Basophils % 0.5 % (0.0-0.8); Eosinophils # 0.3 10*3/uL (0.0-0.87); Eosinophils % 1.8 % (0.00-10.9); Hematocrit 27.6 VOL% (35.7-47.0); Hemoglobin 8.9 GM/DL (12.0-16.0); Immature Granulocytes % 2.8 %; Immature Granulocytes Absolute 0.41 #; Lymphocytes # 2.1 10*3/uL (1.4-4.0); Lymphocytes % 14.3 % (21.3-54.2); Mean Corpuscular HGB Conc 32.2 GM/DL (32-36); Mean Corpuscular Volume 102.2 FL (87-102); Mean Platelet Volume 9.9 FL (9.6-12.0); Monocytes % 8.7 % (1.7-12.7); Neutrophils % 71.9 % (38.7-73.9); Platelet Count 114 T/CUMM (130-400); Red Cell Distribution Width 20.5 % (9.3-17.3); White Blood Count 14.5 T/CUMM (4-12)
[2020-04-10 06:07] LABS: Albumin 2.5 G/DL (3.4-5.0); Bilirubin,Total 2.7 MG/DL (0.2-1.0); Calcium 9.1 MG/DL (8.5-10.1); Osmolality,Calculated 297.1 MOS/KG (273-304); Potassium 3.5 MMOL/L (3.5-5.1); Total Protein 6.1 G/DL (6.4-8.3)
[2020-04-10 06:08] LABS: Hypochromasia 1+; Microcytosis 1+; Ovalocytes Slight
[2020-04-10] MEDS: MULTIVITAMIN (CENTRUM) TABLET PO SCH (08:19)
[2020-04-10] MEDS: PANTOPRAZOLE 40 MG VIAL IV SCH ×2 (08:48→20:26)
[2020-04-10] MEDS: MORPHINE 4 MG/1 ML VIAL IV PRN ×3 (08:48→22:13)
[2020-04-10] MEDS: THIAMINE 100 MG TABLET PO SCH (09:35)
[2020-04-10] MEDS ORDERED: OLANZapine 10 MG VIAL IM PRN (09:36)
[2020-04-10] MEDS ORDERED: MORPHINE 4 MG/1 ML VIAL IV ONE (09:57)
[2020-04-11] MEDS: DEXTROSE 5% 1,000 ML IV SCH ×2 (01:00→09:19)
[2020-04-11] MEDS: LACTULOSE 320 GM/480 ML BOTTLE RECTAL SCH (04:25)
[2020-04-11] MEDS: MORPHINE 4 MG/1 ML VIAL IV PRN (06:27)
[2020-04-11 07:23] LABS: Basophils # 0.1 10*3/uL (0.0-0.2); Basophils % 0.4 % (0.0-0.8); Eosinophils # 0.2 10*3/uL (0.0-0.87); Eosinophils % 1.7 % (0.00-10.9); Hematocrit 28.3 VOL% (35.7-47.0); Hemoglobin 9.1 GM/DL (12.0-16.0); Immature Granulocytes % 1.8 %; Immature Granulocytes Absolute 0.24 #; Lymphocytes % 15.2 % (21.3-54.2); Mean Corpuscular HGB Conc 32.2 GM/DL (32-36); Mean Corpuscular Volume 102.2 FL (87-102); Mean Platelet Volume 10.4 FL (9.6-12.0); Monocytes % 9.1 % (1.7-12.7); Neutrophils % 71.8 % (38.7-73.9); Red Blood Count 2.77 MC/CUMM (3.8-5.5); Red Cell Distribution Width 20.6 % (9.3-17.3); White Blood Count 13.1 T/CUMM (4-12)
[2020-04-11 07:30] LABS: Platelet Count 80 T/CUMM (130-400)
[2020-04-11 08:44] LABS: Albumin 2.2 G/DL (3.4-5.0); Bilirubin,Total 2.2 MG/DL (0.2-1.0); Calcium 8.8 MG/DL (8.5-10.1); Osmolality,Calculated 290.6 MOS/KG (273-304); Potassium 3.1 MMOL/L (3.5-5.1); Total Protein 5.6 G/DL (6.4-8.3)
[2020-04-11] MEDS: PANTOPRAZOLE 40 MG VIAL IV SCH ×2 (08:59→21:41)
[2020-04-11] MEDS: THIAMINE 100 MG TABLET PO SCH (08:59)
[2020-04-11] MEDS: MULTIVITAMIN (CENTRUM) TABLET PO SCH (08:59)
[2020-04-11] MEDS: LACTULOSE 20 GM/30 ML UDCUP PO SCH ×2 (12:48→18:35)
[2020-04-11] MEDS: LORazepam 2 MG/1 ML VIAL IV PRN ×2 (13:05→20:14)
[2020-04-12] MEDS: LACTULOSE 20 GM/30 ML UDCUP PO SCH ×4 (01:02→18:14)
[2020-04-12] MEDS: DEXTROSE 5% 1,000 ML IV SCH ×4 (03:22→23:01)
[2020-04-12] MEDS: LORazepam 2 MG/1 ML VIAL IV PRN ×2 (04:52→22:57)
[2020-04-12 06:57] LABS: Calcium 8.7 MG/DL (8.5-10.1); Osmolality,Calculated 293.4 MOS/KG (273-304); Potassium 2.8 MMOL/L (3.5-5.1)
[2020-04-12] MEDS: THIAMINE 100 MG TABLET PO SCH (08:23)
[2020-04-12] MEDS: PANTOPRAZOLE 40 MG VIAL IV SCH ×2 (08:23→22:47)
[2020-04-12] MEDS: MULTIVITAMIN (CENTRUM) TABLET PO SCH (08:23)
[2020-04-12] MEDS: POTASSIUM CHLORIDE RIDER 10 MEQ in PREMIX 1 EACH IV PRN ×5 (08:23→14:46)
[2020-04-12] MEDS: ALBUTEROL/IPRATROPIUM 3 ML NEB RESP TX SCH ×3 (10:47→19:24)
[2020-04-13] MEDS: LACTULOSE 20 GM/30 ML UDCUP PO SCH ×4 (02:51→17:27)
[2020-04-13] MEDS: LACTULOSE 320 GM/480 ML BOTTLE RECTAL SCH ×2 (02:51→05:52)
[2020-04-13] MEDS: DEXTROSE 5% 1,000 ML IV SCH ×3 (02:51→13:44)
[2020-04-13] MEDS: MORPHINE 4 MG/1 ML VIAL IV PRN (03:25)
[2020-04-13] MEDS: POTASSIUM CHLORIDE RIDER 10 MEQ in PREMIX 1 EACH IV PRN ×8 (03:54→20:55)
[2020-04-13 05:34] LABS: Basophils % 0.1 % (0.0-0.8); Eosinophils # 0.2 10*3/uL (0.0-0.87); Eosinophils % 1.1 % (0.00-10.9); Hematocrit 26.3 VOL% (35.7-47.0); Hemoglobin 8.7 GM/DL (12.0-16.0); Immature Granulocytes % 1.1 %; Immature Granulocytes Absolute 0.17 #; Lymphocytes # 1.9 10*3/uL (1.4-4.0); Lymphocytes % 12.8 % (21.3-54.2); Mean Corpuscular HGB Conc 33.1 GM/DL (32-36); Mean Corpuscular Volume 98.9 FL (87-102); Mean Platelet Volume 10.5 FL (9.6-12.0); Neutrophils % 76.9 % (38.7-73.9); Platelet Count 67 T/CUMM (130-400); Red Blood Count 2.66 MC/CUMM (3.8-5.5); Red Cell Distribution Width 20.7 % (9.3-17.3); White Blood Count 14.8 T/CUMM (4-12)
[2020-04-13 05:57] LABS: Osmolality,Calculated 288.7 MOS/KG (273-304); Potassium 3.1 MMOL/L (3.5-5.1)
[2020-04-13 05:59] LABS: Hypochromasia 1+
[2020-04-13 06:00] LABS: Anisocytosis 1+; Microcytosis 1+; Platelet Estimate Decreased; Target Cells Slight
[2020-04-13] MEDS: ALBUTEROL/IPRATROPIUM 3 ML NEB RESP TX SCH ×5 (07:32→23:51)
[2020-04-13] MEDS: PANTOPRAZOLE 40 MG VIAL IV SCH ×2 (08:48→20:53)
[2020-04-13] MEDS: THIAMINE 100 MG TABLET PO SCH (08:48)
[2020-04-13] MEDS: MULTIVITAMIN (CENTRUM) TABLET PO SCH (08:48)
[2020-04-14] MEDS: LACTULOSE 20 GM/30 ML UDCUP PO SCH ×5 (00:06→20:40)
[2020-04-14] MEDS: ALBUTEROL/IPRATROPIUM 3 ML NEB RESP TX SCH ×6 (05:33→18:33)
[2020-04-14 05:49] LABS: Basophils % 0.2 % (0.0-0.8); Eosinophils # 0.2 10*3/uL (0.0-0.87); Hemoglobin 8.3 GM/DL (12.0-16.0); Immature Granulocytes % 0.8 %; Immature Granulocytes Absolute 0.15 #; Lymphocytes # 2.2 10*3/uL (1.4-4.0); Lymphocytes % 11.8 % (21.3-54.2); Mean Corpuscular HGB Conc 31.9 GM/DL (32-36); Mean Platelet Volume 11.5 FL (9.6-12.0); Monocytes % 7.8 % (1.7-12.7); Neutrophils % 78.4 % (38.7-73.9); Platelet Count 66 T/CUMM (130-400); Red Cell Distribution Width 20.9 % (9.3-17.3); White Blood Count 18.4 T/CUMM (4-12)
[2020-04-14 06:10] LABS: Calcium 8.2 MG/DL (8.5-10.1); Osmolality,Calculated 280.3 MOS/KG (273-304); Potassium 3.3 MMOL/L (3.5-5.1)
[2020-04-14] MEDS: DEXTROSE 5% 1,000 ML IV SCH ×2 (09:33→16:41)
[2020-04-14] MEDS: THIAMINE 100 MG TABLET PO SCH (09:34)
[2020-04-14] MEDS: PANTOPRAZOLE 40 MG VIAL IV SCH (09:34)
[2020-04-14] MEDS: MULTIVITAMIN (CENTRUM) TABLET PO SCH (09:34)
[2020-04-14] MEDS: POTASSIUM CHLORIDE RIDER 10 MEQ in PREMIX 1 EACH IV PRN ×4 (09:34→14:11)
[2020-04-15] MEDS: ALBUTEROL/IPRATROPIUM 3 ML NEB RESP TX SCH ×6 (00:51→19:38)
[2020-04-15] MEDS: LACTULOSE 20 GM/30 ML UDCUP PO SCH ×2 (05:00→12:14)
[2020-04-15 05:43] LABS: Basophils % 0.2 % (0.0-0.8); Eosinophils # 0.2 10*3/uL (0.0-0.87); Eosinophils % 1.2 % (0.00-10.9); Hematocrit 25.7 VOL% (35.7-47.0); Hemoglobin 7.9 GM/DL (12.0-16.0); Immature Granulocytes Absolute 0.17 #; Lymphocytes # 2.4 10*3/uL (1.4-4.0); Lymphocytes % 13.8 % (21.3-54.2); Mean Corpuscular HGB Conc 30.7 GM/DL (32-36); Mean Corpuscular Volume 104.9 FL (87-102); Mean Platelet Volume 11.7 FL (9.6-12.0); Monocytes % 7.4 % (1.7-12.7); Neutrophils % 76.4 % (38.7-73.9); Red Blood Count 2.45 MC/CUMM (3.8-5.5); White Blood Count 17.7 T/CUMM (4-12)
[2020-04-15 05:45] LABS: Platelet Count 59 T/CUMM (130-400)
[2020-04-15 06:01] LABS: Calcium 8.1 MG/DL (8.5-10.1); Osmolality,Calculated 278.4 MOS/KG (273-304); Potassium 3.5 MMOL/L (3.5-5.1)
[2020-04-15] MEDS: DEXTROSE 5% 1,000 ML IV SCH ×3 (07:00→23:02)
[2020-04-15] MEDS: PANTOPRAZOLE 40 MG TABLET PO SCH (09:13)
[2020-04-15] MEDS: MULTIVITAMIN (CENTRUM) TABLET PO SCH (09:13)
[2020-04-15] MEDS: cefTRIAXone 2,000 MG in SYRINGE 1 EACH IV SCH (09:13)
[2020-04-15] MEDS: THIAMINE 100 MG TABLET PO SCH (09:13)
[2020-04-16] MEDS: ALBUTEROL/IPRATROPIUM 3 ML NEB RESP TX SCH ×6 (00:22→19:20)
[2020-04-16] MEDS: LACTULOSE 20 GM/30 ML UDCUP PO SCH ×4 (02:22→23:10)
[2020-04-16] MEDS: DEXTROSE 5% 1,000 ML IV SCH (05:15)
[2020-04-16] MEDS: cefTRIAXone 2,000 MG in SYRINGE 1 EACH IV SCH (09:09)
[2020-04-16] MEDS: PANTOPRAZOLE 40 MG TABLET PO SCH (09:09)
[2020-04-16] MEDS: THIAMINE 100 MG TABLET PO SCH (09:09)
[2020-04-16] MEDS: MULTIVITAMIN (CENTRUM) TABLET PO SCH (09:09)
[2020-04-16] MEDS: OLANZapine 2.5 MG TABLET PO SCH (13:25)
[2020-04-16] MEDS: ACETAMINOPHEN 325 MG TABLET PO PRN (17:05)
[2020-04-16] MEDS: DESITIN 4OZ/NYSTATIN 15 GRAM MIXTURE PASTE TOP SCH (23:10)
[2020-04-16] MEDS: LORazepam 2 MG/1 ML VIAL IV PRN (23:12)
[2020-04-17] MEDS: ALBUTEROL/IPRATROPIUM 3 ML NEB RESP TX SCH ×6 (00:19→19:18)
[2020-04-17 05:51] LABS: Basophils % 0.3 % (0.0-0.8); Eosinophils # 0.2 10*3/uL (0.0-0.87); Eosinophils % 1.3 % (0.00-10.9); Hematocrit 22.4 VOL% (35.7-47.0); Hemoglobin 7.6 GM/DL (12.0-16.0); Immature Granulocytes % 0.5 %; Immature Granulocytes Absolute 0.08 #; Lymphocytes % 13.6 % (21.3-54.2); Mean Corpuscular HGB Conc 33.9 GM/DL (32-36); Mean Corpuscular Volume 96.6 FL (87-102); Mean Platelet Volume 11.9 FL (9.6-12.0); Monocytes % 8.8 % (1.7-12.7); Neutrophils % 75.5 % (38.7-73.9); Platelet Count 71 T/CUMM (130-400); Red Blood Count 2.32 MC/CUMM (3.8-5.5); Red Cell Distribution Width 20.5 % (9.3-17.3)
[2020-04-17 06:18] LABS: Albumin 2.2 G/DL (3.4-5.0); Bilirubin,Total 2.6 MG/DL (0.2-1.0); Calcium 7.7 MG/DL (8.5-10.1); Osmolality,Calculated 276.5 MOS/KG (273-304); Potassium 3.5 MMOL/L (3.5-5.1); Total Protein 6.1 G/DL (6.4-8.3)
[2020-04-17] MEDS: LACTULOSE 20 GM/30 ML UDCUP PO SCH ×3 (06:22→21:51)
[2020-04-17] MEDS: LORazepam 2 MG/1 ML VIAL IV PRN ×3 (06:22→23:55)
[2020-04-17] MEDS: cefTRIAXone 2,000 MG in SYRINGE 1 EACH IV SCH (08:40)
[2020-04-17] MEDS: MULTIVITAMIN (CENTRUM) TABLET PO SCH (09:44)
[2020-04-17] MEDS: DESITIN 4OZ/NYSTATIN 15 GRAM MIXTURE PASTE TOP SCH ×2 (09:44→21:51)
[2020-04-17] MEDS: PANTOPRAZOLE 40 MG TABLET PO SCH (09:44)
[2020-04-17] MEDS: THIAMINE 100 MG TABLET PO SCH (09:44)
[2020-04-17] MEDS: OLANZapine 2.5 MG TABLET PO SCH (09:44)
[2020-04-17] MEDS: DEXTROSE 5% 1,000 ML IV SCH (11:09)
[2020-04-17] MEDS: ACETAMINOPHEN 325 MG TABLET PO PRN (11:09)
[2020-04-18] MEDS: ALBUTEROL/IPRATROPIUM 3 ML NEB RESP TX SCH ×7 (01:32→23:30)
[2020-04-18] MEDS: LACTULOSE 20 GM/30 ML UDCUP PO SCH ×3 (04:42→21:24)
[2020-04-18] MEDS: THIAMINE 100 MG TABLET PO SCH (08:57)
[2020-04-18] MEDS: ACETAMINOPHEN 325 MG TABLET PO PRN ×2 (08:57→16:23)
[2020-04-18] MEDS: FOLIC ACID 1 MG TABLET PO SCH (08:57)
[2020-04-18] MEDS: OLANZapine 2.5 MG TABLET PO SCH (08:57)
[2020-04-18] MEDS: PANTOPRAZOLE 40 MG TABLET PO SCH (08:57)
[2020-04-18] MEDS: MULTIVITAMIN (CENTRUM) TABLET PO SCH (08:57)
[2020-04-18] MEDS: DESITIN 4OZ/NYSTATIN 15 GRAM MIXTURE PASTE TOP SCH ×2 (08:58→21:23)
[2020-04-18] MEDS: cefTRIAXone 2,000 MG in SYRINGE 1 EACH IV SCH (08:58)
[2020-04-18] MEDS: LORazepam 2 MG/1 ML VIAL IV PRN (21:53)
[2020-04-19] MEDS: ACETAMINOPHEN 325 MG TABLET PO PRN (03:45)
[2020-04-19] MEDS: ALBUTEROL/IPRATROPIUM 3 ML NEB RESP TX SCH ×6 (04:00→23:00)
[2020-04-19 04:55] LABS: Basophils % 0.2 % (0.0-0.8); Eosinophils # 0.2 10*3/uL (0.0-0.87); Eosinophils % 1.7 % (0.00-10.9); Hematocrit 21.7 VOL% (35.7-47.0); Hemoglobin 7.2 GM/DL (12.0-16.0); Immature Granulocytes % 0.5 %; Immature Granulocytes Absolute 0.04 #; Lymphocytes # 1.8 10*3/uL (1.4-4.0); Lymphocytes % 20.2 % (21.3-54.2); Mean Corpuscular HGB Conc 33.2 GM/DL (32-36); Mean Corpuscular Volume 97.3 FL (87-102); Mean Platelet Volume 10.9 FL (9.6-12.0); Monocytes % 9.7 % (1.7-12.7); Neutrophils % 67.7 % (38.7-73.9); Red Blood Count 2.23 MC/CUMM (3.8-5.5); Red Cell Distribution Width 20.6 % (9.3-17.3); White Blood Count 8.8 T/CUMM (4-12)
[2020-04-19 04:56] LABS: Platelet Count 86 T/CUMM (130-400)
[2020-04-19] MEDS: LACTULOSE 20 GM/30 ML UDCUP PO SCH ×3 (04:57→17:39)
[2020-04-19 05:16] LABS: Hypochromasia 2+; Microcytosis 1+; Platelet Estimate Decreased
[2020-04-19 05:26] LABS: Potassium 3.6 MMOL/L (3.5-5.1)
[2020-04-19] MEDS: LORazepam 2 MG/1 ML VIAL IV PRN (05:56)
[2020-04-19] MEDS: FOLIC ACID 1 MG TABLET PO SCH (08:28)
[2020-04-19] MEDS: MULTIVITAMIN (CENTRUM) TABLET PO SCH (08:28)
[2020-04-19] MEDS: cefTRIAXone 2,000 MG in SYRINGE 1 EACH IV SCH (08:28)
[2020-04-19] MEDS: PANTOPRAZOLE 40 MG TABLET PO SCH (08:28)
[2020-04-19] MEDS: THIAMINE 100 MG TABLET PO SCH (08:29)
[2020-04-19] MEDS: DESITIN 4OZ/NYSTATIN 15 GRAM MIXTURE PASTE TOP SCH ×2 (08:29→22:27)
[2020-04-19] MEDS: OLANZapine 2.5 MG TABLET PO SCH (08:29)
[2020-04-19 11:40] LABS: Albumin 2.1 G/DL (3.4-5.0); Bilirubin,Total 1.9 MG/DL (0.2-1.0); Calcium 8.1 MG/DL (8.5-10.1); Potassium 3.3 MMOL/L (3.5-5.1); Total Protein 6.3 G/DL (6.4-8.3)
[2020-04-20] MEDS: LACTULOSE 20 GM/30 ML UDCUP PO SCH ×4 (00:52→17:06)
[2020-04-20] MEDS: ALBUTEROL/IPRATROPIUM 3 ML NEB RESP TX SCH ×6 (03:00→23:40)
[2020-04-20 05:49] LABS: Basophils % 0.4 % (0.0-0.8); Eosinophils # 0.2 10*3/uL (0.0-0.87); Eosinophils % 2.5 % (0.00-10.9); Hemoglobin 7.6 GM/DL (12.0-16.0); Immature Granulocytes % 0.6 %; Immature Granulocytes Absolute 0.05 #; Lymphocytes % 23.7 % (21.3-54.2); Mean Corpuscular HGB Conc 31.7 GM/DL (32-36); Mean Corpuscular Volume 101.3 FL (87-102); Mean Platelet Volume 11.1 FL (9.6-12.0); Monocytes % 11.1 % (1.7-12.7); Neutrophils % 61.7 % (38.7-73.9); Red Blood Count 2.37 MC/CUMM (3.8-5.5); Red Cell Distribution Width 20.8 % (9.3-17.3); White Blood Count 8.3 T/CUMM (4-12)
[2020-04-20 05:51] LABS: Platelet Count 107 T/CUMM (130-400)
[2020-04-20 06:20] LABS: Albumin 2.3 G/DL (3.4-5.0); Bilirubin,Total 2.6 MG/DL (0.2-1.0); Calcium 8.6 MG/DL (8.5-10.1); Osmolality,Calculated 286.7 MOS/KG (273-304); Potassium 3.4 MMOL/L (3.5-5.1); Total Protein 6.8 G/DL (6.4-8.3)
[2020-04-20 06:21] LABS: Anisocytosis 2+; Platelet Estimate Adequate
[2020-04-20 06:22] LABS: Burr Cells Few; Macrocytosis 1+; Poikilocytosis Slight; Target Cells Few
[2020-04-20] MEDS: THIAMINE 100 MG TABLET PO SCH (09:28)
[2020-04-20] MEDS: MULTIVITAMIN (CENTRUM) TABLET PO SCH (09:28)
[2020-04-20] MEDS: PANTOPRAZOLE 40 MG TABLET PO SCH (09:28)
[2020-04-20] MEDS: ACETAMINOPHEN 325 MG TABLET PO PRN (09:28)
[2020-04-20] MEDS: FOLIC ACID 1 MG TABLET PO SCH (09:28)
[2020-04-20] MEDS: OLANZapine 2.5 MG TABLET PO SCH (09:28)
[2020-04-20] MEDS: DESITIN 4OZ/NYSTATIN 15 GRAM MIXTURE PASTE TOP SCH ×2 (09:30→23:46)
[2020-04-20] MEDS: cefTRIAXone 2,000 MG in SYRINGE 1 EACH IV SCH (09:30)
[2020-04-20] MEDS: POTASSIUM CHLORIDE RIDER 10 MEQ in PREMIX 1 EACH IV PRN ×3 (10:47→13:17)
[2020-04-21] MEDS: LACTULOSE 20 GM/30 ML UDCUP PO SCH ×3 (00:17→11:11)
[2020-04-21] MEDS: ALBUTEROL/IPRATROPIUM 3 ML NEB RESP TX SCH ×2 (03:30→07:10)
[2020-04-21 06:18] LABS: Basophils % 0.4 % (0.0-0.8); Eosinophils # 0.3 10*3/uL (0.0-0.87); Eosinophils % 2.9 % (0.00-10.9); Hematocrit 24.7 VOL% (35.7-47.0); Immature Granulocytes % 0.4 %; Immature Granulocytes Absolute 0.04 #; Lymphocytes # 2.4 10*3/uL (1.4-4.0); Mean Corpuscular HGB Conc 32.4 GM/DL (32-36); Mean Corpuscular Volume 99.6 FL (87-102); Mean Platelet Volume 10.9 FL (9.6-12.0); Monocytes % 9.4 % (1.7-12.7); Neutrophils % 61.9 % (38.7-73.9); Red Blood Count 2.48 MC/CUMM (3.8-5.5); Red Cell Distribution Width 20.6 % (9.3-17.3); White Blood Count 9.7 T/CUMM (4-12)
[2020-04-21 06:19] LABS: Platelet Count 110 T/CUMM (130-400)
[2020-04-21 06:35] LABS: Calcium 8.4 MG/DL (8.5-10.1); Osmolality,Calculated 280.1 MOS/KG (273-304); Potassium 3.9 MMOL/L (3.5-5.1)
[2020-04-21 06:45] LABS: Eosinophils 3 % (0-10); Lymphocytes 13 % (20-55); Platelet Estimate Normal; Segmented Neutrophils 79 % (50-85); Total Cells Counted 100
[2020-04-21 06:46] LABS: Hypochromasia Slight
[2020-04-21 08:00] VITALS: BP 123/58
[2020-04-21] MEDS: MULTIVITAMIN (CENTRUM) TABLET PO SCH (08:59)
[2020-04-21] MEDS: PANTOPRAZOLE 40 MG TABLET PO SCH (08:59)
[2020-04-21] MEDS: cefTRIAXone 2,000 MG in SYRINGE 1 EACH IV SCH (08:59)
[2020-04-21] MEDS: OLANZapine 2.5 MG TABLET PO SCH (09:00)
[2020-04-21] MEDS: THIAMINE 100 MG TABLET PO SCH (09:00)
[2020-04-21] MEDS: DESITIN 4OZ/NYSTATIN 15 GRAM MIXTURE PASTE TOP SCH (09:00)
[2020-04-21] MEDS: FOLIC ACID 1 MG TABLET PO SCH (09:00)
[2020-04-21 12:50] LABS: % Iron Saturation 64.8 % (18-50); Ferritin 704.8 ng/ml (8-252)
[2020-04-21 13:39] LABS: Folate > 24.0 NG/ML (5.38-24.0); Vitamin B12 1979 PG/ML (211-911)
== END 2020-04-21 12:13 | disposition home health service (06) | DRG 199 ==
LOC: EDBD → EDUNIT# → N.ED 04:57 → SUATTDRO 09:25 → N.EDINP 09:25 → N.CVR 04-02 11:15 → N.TELES 04-04 18:17 → N.ICU 04-06 12:50 → N.TELEN 04-11 11:08
PROVIDERS: ADMIT Internal Medicine; ATTEND Internal Medicine
PROC: EGDWEBL (ICD-10-PCS; 2020-04-03 08:05)

== ENCOUNTER 2020-05-11 14:39 | Inpatient (IN) ==
[2020-05-11] MEDS ORDERED: SODIUM CHLORIDE 0.9% 1,000 ML IV STA (14:54)
[2020-05-11 15:52] LABS: Basophils % 0.3 % (0.0-0.8); Eosinophils # 0.6 10*3/uL (0.0-0.87); Eosinophils % 5.9 % (0.00-10.9); Hematocrit 25.8 VOL% (35.7-47.0); Hemoglobin 8.4 GM/DL (12.0-16.0); Immature Granulocytes % 0.9 %; Immature Granulocytes Absolute 0.09 #; Lymphocytes # 1.9 10*3/uL (1.4-4.0); Lymphocytes % 18.8 % (21.3-54.2); Mean Corpuscular HGB Conc 32.6 GM/DL (32-36); Mean Corpuscular Volume 101.2 FL (87-102); Mean Platelet Volume 10.6 FL (9.6-12.0); Monocytes % 9.4 % (1.7-12.7); Neutrophils % 64.7 % (38.7-73.9); Platelet Count 131 T/CUMM (130-400); Red Blood Count 2.55 MC/CUMM (3.8-5.5); Red Cell Distribution Width 18.6 % (9.3-17.3); White Blood Count 10.2 T/CUMM (4-12)
[2020-05-11 16:11] LABS: Bilirubin,Urine Negative (Negative); Blood, Urine Small mg/dL (Negative); Glucose,Urine (UA) Negative (Negative); Ketones,Urine Negative (Negative); Nitrite,Urine Negative (Negative); Protein,Urine Negative; RBC,Urine 1 /HPF (0-4); Squamous Epithelial Cell,Urine Occasional /HPF (0-10); Urine Appearance CLEAR (Clear); Urine Color Yellow (Yellow); Urine Specific Gravity 1.006 (1.001-1.035); WBC,Urine 111 /HPF (0-6)
[2020-05-11 16:11] LABS: Albumin 2.3 G/DL (3.4-5.0); Bilirubin,Total 2.4 MG/DL (0.2-1.0); Calcium 9.1 MG/DL (8.5-10.1); Osmolality,Calculated 286.3 MOS/KG (273-304); Potassium 4.6 MMOL/L (3.5-5.1); Total Protein 7.4 G/DL (6.4-8.3)
[2020-05-11 16:14] LABS: INR 1.2; Partial Thromboplastin Time 41.2 SECS (23.9-33.8)
[2020-05-11] MEDS ORDERED: cefTRIAXone 1,000 MG in SODIUM CHLORIDE 0.9% 100 ML IV STA (16:23)
[2020-05-11 16:28] LABS: Barbiturates Screen,Urine Negative (Negative); Benzodiazepines Screen,Urine Negative (Negative); Cannabinoid Screen,Urine Negative (Negative); Opiate Screen,Urine Positive (Negative); Phencyclidine Screen,Urine Negative (Negative)
[2020-05-11] MEDS ORDERED: DEXTROSE 50% 25 GM/50 ML VIAL IV PRN (17:17)
[2020-05-11] MEDS ORDERED: GLUCAGON 1 MG VIAL IM PRN (17:17)
[2020-05-11] MEDS ORDERED: cefTRIAXone 2,000 MG in SODIUM CHLORIDE 0.9% 100 ML IV SCH (17:30)
[2020-05-11] MEDS ORDERED: SODIUM CHLORIDE 0.9% 1,000 ML IV PRN (17:46)
[2020-05-11 20:12] LABS: Hemoglobin 7.8 GM/DL (12.0-16.0)
[2020-05-11] MEDS: LACTULOSE 20 GM/30 ML UDCUP PO SCH ×2 (21:36→23:51)
[2020-05-11] MEDS: PANTOPRAZOLE 40 MG VIAL IV SCH (21:37)
[2020-05-11] MEDS: DEXTROSE 5% NACL 0.9% 1,000 ML IV SCH (21:43)
[2020-05-12 00:48] LABS: Hematocrit 22.8 VOL% (35.7-47.0); Hemoglobin 7.6 GM/DL (12.0-16.0)
[2020-05-12] MEDS: DEXTROSE 5% NACL 0.9% 1,000 ML IV SCH ×3 (03:30→23:30)
[2020-05-12] MEDS: LACTULOSE 20 GM/30 ML UDCUP PO SCH ×3 (05:21→17:52)
[2020-05-12 05:22] LABS: Hematocrit 24.9 VOL% (35.7-47.0)
[2020-05-12 05:26] LABS: Basophils % 0.5 % (0.0-0.8); Eosinophils # 0.5 10*3/uL (0.0-0.87); Eosinophils % 6.7 % (0.00-10.9); Hematocrit 23.8 VOL% (35.7-47.0); Hemoglobin 7.9 GM/DL (12.0-16.0); Immature Granulocytes % 0.6 %; Immature Granulocytes Absolute 0.05 #; Lymphocytes # 1.7 10*3/uL (1.4-4.0); Lymphocytes % 21.7 % (21.3-54.2); Mean Corpuscular HGB Conc 33.2 GM/DL (32-36); Mean Corpuscular Volume 100.4 FL (87-102); Mean Platelet Volume 10.1 FL (9.6-12.0); Neutrophils % 61.5 % (38.7-73.9); Platelet Count 109 T/CUMM (130-400); Red Blood Count 2.37 MC/CUMM (3.8-5.5); Red Cell Distribution Width 18.7 % (9.3-17.3); White Blood Count 7.8 T/CUMM (4-12)
[2020-05-12 05:58] LABS: Albumin 2.3 G/DL (3.4-5.0); Calcium 8.7 MG/DL (8.5-10.1); Osmolality,Calculated 292.7 MOS/KG (273-304); Potassium 3.9 MMOL/L (3.5-5.1)
[2020-05-12 07:49] LABS: Hematocrit 23.7 VOL% (35.7-47.0); Hemoglobin 7.6 GM/DL (12.0-16.0)
[2020-05-12] MEDS: PANTOPRAZOLE 40 MG VIAL IV SCH (10:20)
[2020-05-12 16:01] LABS: Hematocrit 23.4 VOL% (35.7-47.0); Hemoglobin 7.5 GM/DL (12.0-16.0)
[2020-05-12 16:18] LABS: Hematocrit 23.1 VOL% (35.7-47.0); Hemoglobin 7.5 GM/DL (12.0-16.0)
[2020-05-12] MEDS: PROPRANOLOL 10 MG TABLET PO SCH (21:29)
[2020-05-13] MEDS: LACTULOSE 20 GM/30 ML UDCUP PO SCH ×5 (00:59→20:22)
[2020-05-13 06:08] LABS: Basophils # 0.1 10*3/uL (0.0-0.2); Basophils % 0.6 % (0.0-0.8); Eosinophils # 0.8 10*3/uL (0.0-0.87); Eosinophils % 10.1 % (0.00-10.9); Hematocrit 25.7 VOL% (35.7-47.0); Hemoglobin 8.2 GM/DL (12.0-16.0); Immature Granulocytes % 0.6 %; Immature Granulocytes Absolute 0.05 #; Lymphocytes # 1.4 10*3/uL (1.4-4.0); Lymphocytes % 17.4 % (21.3-54.2); Mean Corpuscular HGB Conc 31.9 GM/DL (32-36); Mean Corpuscular Volume 102.4 FL (87-102); Mean Platelet Volume 10.6 FL (9.6-12.0); Monocytes % 9.4 % (1.7-12.7); Neutrophils % 61.9 % (38.7-73.9); Platelet Count 116 T/CUMM (130-400); Red Blood Count 2.51 MC/CUMM (3.8-5.5); Red Cell Distribution Width 18.7 % (9.3-17.3); White Blood Count 8.2 T/CUMM (4-12)
[2020-05-13 06:52] LABS: Calcium 8.5 MG/DL (8.5-10.1); Osmolality,Calculated 288.7 MOS/KG (273-304); Potassium 3.7 MMOL/L (3.5-5.1)
[2020-05-13] MEDS: PROPRANOLOL 10 MG TABLET PO SCH ×2 (10:12→20:22)
[2020-05-13] MEDS: RIFAXIMIN 550 MG TABLET PO SCH ×2 (10:12→20:22)
[2020-05-13] MEDS: PANTOPRAZOLE 40 MG TABLET PO SCH (10:17)
[2020-05-13] MEDS: LEVOFLOXACIN 500 MG TABLET PO SCH (14:22)
[2020-05-13] MEDS: DEXTROSE 5% NACL 0.9% 1,000 ML IV SCH (20:48)
[2020-05-13] MEDS ORDERED: LORazepam 2 MG/1 ML VIAL IV PRN (21:35)
[2020-05-14 05:56] LABS: Basophils % 0.4 % (0.0-0.8); Eosinophils # 0.9 10*3/uL (0.0-0.87); Eosinophils % 10.7 % (0.00-10.9); Hematocrit 25.7 VOL% (35.7-47.0); Hemoglobin 8.1 GM/DL (12.0-16.0); Immature Granulocytes % 0.5 %; Immature Granulocytes Absolute 0.04 #; Lymphocytes # 1.8 10*3/uL (1.4-4.0); Lymphocytes % 22.4 % (21.3-54.2); Mean Corpuscular HGB Conc 31.5 GM/DL (32-36); Mean Platelet Volume 10.4 FL (9.6-12.0); Monocytes % 6.7 % (1.7-12.7); Neutrophils % 59.3 % (38.7-73.9); Platelet Count 127 T/CUMM (130-400); Red Blood Count 2.47 MC/CUMM (3.8-5.5); Red Cell Distribution Width 18.6 % (9.3-17.3); White Blood Count 8.2 T/CUMM (4-12)
[2020-05-14 06:18] LABS: Calcium 8.4 MG/DL (8.5-10.1); Osmolality,Calculated 285.7 MOS/KG (273-304); Potassium 3.7 MMOL/L (3.5-5.1)
[2020-05-14 07:57] LABS: Band Neutrophils 3 % (0-10); Eosinophils 10 % (0-10); Lymphocytes 23 % (20-55); Platelet Estimate Adequate; Segmented Neutrophils 61 % (50-85); Total Cells Counted 100
[2020-05-14 07:58] LABS: Anisocytosis 2+; Burr Cells Few; Macrocytosis 1+
[2020-05-14] MEDS: PANTOPRAZOLE 40 MG TABLET PO SCH (09:17)
[2020-05-14] MEDS: RIFAXIMIN 550 MG TABLET PO SCH (09:17)
[2020-05-14] MEDS: PROPRANOLOL 10 MG TABLET PO SCH (09:17)
[2020-05-14] MEDS: LACTULOSE 20 GM/30 ML UDCUP PO SCH (09:20)
[2020-05-14 11:22] VITALS: BP 134/50
[2020-05-14] MEDS: LEVOFLOXACIN 500 MG TABLET PO SCH (15:29)
== END 2020-05-14 17:10 | disposition home health service (06) | DRG 442 ==
LOC: EDUNIT# → EDBD → N.ED 14:39 → N.EDINP 17:17 → N.3E 18:32
PROVIDERS: ADMIT Emergency Medicine; ATTEND Emergency Medicine

== ENCOUNTER 2022-01-15 21:29 | Inpatient (IN) ==
[2022-01-16 00:17] LABS: Albumin 3.5 G/DL (3.4-5.0); Bilirubin,Total 1.1 MG/DL (0.20-1.00); Osmolality,Calculated 277.5 MOS/KG (273-304); Potassium 3.2 MMOL/L (3.5-5.1); Total Protein 7.2 G/DL (6.4-8.2)
[2022-01-16 00:19] LABS: Basophils % 0.3 % (0.0-0.8); Eosinophils # 0.2 10*3/uL (0.0-0.87); Eosinophils % 4.1 % (0.00-10.9); Hematocrit 21.8 VOL% (35.7-47.0); Hemoglobin 7.1 GM/DL (12.0-16.0); Immature Granulocytes % 0.5 %; Immature Granulocytes Absolute 0.02 #; Lymphocytes # 1.2 10*3/uL (1.4-4.0); Lymphocytes % 33.2 % (21.3-54.2); Mean Corpuscular HGB Conc 32.6 GM/DL (32-36); Mean Corpuscular Volume 94.8 FL (87-102); Mean Platelet Volume 10.2 FL (9.6-12.0); Monocytes # 0.2 10*3/uL (0.11-0.8); Monocytes % 6.3 % (1.7-12.7); Neutrophils % 55.6 % (38.7-73.9); Platelet Count 83 T/CUMM (130-400); Red Cell Distribution Width 19.9 % (9.3-17.3); White Blood Count 3.6 T/CUMM (4-12)
[2022-01-16 00:44] LABS: INR 1.1; PT Patient Result 12.4 SECS (10.1-12.1); Partial Thromboplastin Time 32.3 SECS (23.7-32.9)
[2022-01-16] MEDS ORDERED: PANTOPRAZOLE INJ 80 MG in SODIUM CHLORIDE 0.9% 100 ML IV ONE (00:54)
[2022-01-16] MEDS ORDERED: SODIUM CHLORIDE 0.9% 1,000 ML IV PRN (01:08)
[2022-01-16] MEDS ORDERED: ALUMINUM/MAGNES/SIMETH MAX STR 30 ML UDCUP PO PRN (01:11)
[2022-01-16] MEDS ORDERED: hydrALAZINE 20 MG/1 ML VIAL IV PRN (01:11)
[2022-01-16] MEDS ORDERED: ONDANSETRON 4 MG/2 ML VIAL IV PRN (01:11)
[2022-01-16] MEDS ORDERED: POTASSIUM CHLORIDE 20 MEQ TABLET PO ONE (01:45)
[2022-01-16] MEDS: LACTATED RINGERS 1,000 ML IV SCH ×3 (02:38→23:21)
[2022-01-16] MEDS: PANTOPRAZOLE INJ 200 MG in SODIUM CHLORIDE 0.9% 250 ML IV SCH (03:40)
[2022-01-16 04:35] LABS: Basophils % 0.5 % (0.0-0.8); Eosinophils # 0.1 10*3/uL (0.0-0.87); Eosinophils % 3.9 % (0.00-10.9); Hematocrit 18.2 VOL% (35.7-47.0); Immature Granulocytes % 0.5 %; Immature Granulocytes Absolute 0.01 #; Lymphocytes # 0.7 10*3/uL (1.4-4.0); Lymphocytes % 34.1 % (21.3-54.2); Mean Corpuscular Volume 93.8 FL (87-102); Mean Platelet Volume 10.3 FL (9.6-12.0); Monocytes # 0.1 10*3/uL (0.11-0.8); Monocytes % 6.8 % (1.7-12.7); Neutrophils % 54.2 % (38.7-73.9); Platelet Count 71 T/CUMM (130-400); Red Blood Count 1.94 MC/CUMM (3.8-5.5); Red Cell Distribution Width 20.2 % (9.3-17.3); White Blood Count 2.1 T/CUMM (4-12)
[2022-01-16] MEDS ORDERED: ALBUTEROL 2.5 MG/3 ML NEB RESP TX PRN (05:04)
[2022-01-16 05:10] LABS: Anisocytosis 2+; Lymphocytes 42 % (20-55); Platelet Estimate Decreased; Total Cells Counted 100
[2022-01-16 05:17] LABS: Calcium 8.7 MG/DL (8.5-10.1); Osmolality,Calculated 285.8 MOS/KG (273-304); Potassium 3.7 MMOL/L (3.5-5.1); Total Protein 6.3 G/DL (6.4-8.2)
[2022-01-16 05:44] LABS: Folate 10.22 NG/ML (5.38-24.0); Vitamin B12 760 PG/ML (211-911)
[2022-01-16 05:53] LABS: Sedimentation Rate-Westergren 100 MM/HR (0-30)
[2022-01-16] MEDS: cefTRIAXone 1,000 MG in SODIUM CHLORIDE 0.9% 100 ML IV SCH (06:57)
[2022-01-16 08:25] LABS: % Iron Saturation 3.1 % (18-50); Ferritin 10.4 ng/mL (8-252)
[2022-01-16] MEDS: MULTIVITAMIN (CENTRUM) TABLET PO SCH (08:48)
[2022-01-16] MEDS: LORATADINE 10 MG TABLET PO SCH (08:48)
[2022-01-16] MEDS: PARoxetine 10 MG TABLET PO SCH (08:48)
[2022-01-16] MEDS: NICOTINE 21 MG/24 HR PATCH TRANSDERM SCH (08:48)
[2022-01-16] MEDS: THIAMINE INJ 100 MG, FOLIC ACID INJ 1 MG in SODIUM CHLORIDE 0.9% 1,000 ML IV SCH (09:48)
[2022-01-16 14:09] LABS: Hematocrit 25.1 VOL% (35.7-47.0); Hemoglobin 8.1 GM/DL (12.0-16.0)
[2022-01-16] MEDS: MELATONIN 3 MG TABLET PO SCH (21:27)
[2022-01-16] MEDS: GABAPENTIN 300 MG CAPSULE PO PRN (21:33)
[2022-01-17] MEDS: PANTOPRAZOLE INJ 200 MG in SODIUM CHLORIDE 0.9% 250 ML IV SCH (03:07)
[2022-01-17] MEDS: cefTRIAXone 1,000 MG in SODIUM CHLORIDE 0.9% 100 ML IV SCH (06:19)
[2022-01-17 07:10] LABS: Eosinophils # 0.1 10*3/uL (0.0-0.87); Eosinophils % 4.7 % (0.00-10.9); Hematocrit 24.8 VOL% (35.7-47.0); Immature Granulocytes % 0.4 %; Immature Granulocytes Absolute 0.01 #; Lymphocytes # 0.7 10*3/uL (1.4-4.0); Mean Corpuscular HGB Conc 32.3 GM/DL (32-36); Mean Corpuscular Volume 93.2 FL (87-102); Mean Platelet Volume 9.7 FL (9.6-12.0); Monocytes # 0.2 10*3/uL (0.11-0.8); Monocytes % 7.7 % (1.7-12.7); Neutrophils % 60.2 % (38.7-73.9); Platelet Count 57 T/CUMM (130-400); Red Blood Count 2.66 MC/CUMM (3.8-5.5); Red Cell Distribution Width 19.2 % (9.3-17.3); White Blood Count 2.7 T/CUMM (4-12)
[2022-01-17 07:22] LABS: Albumin 2.9 G/DL (3.4-5.0); Bilirubin,Total 1.8 MG/DL (0.20-1.00); Calcium 8.2 MG/DL (8.5-10.1); Osmolality,Calculated 275.5 MOS/KG (273-304); Potassium 3.6 MMOL/L (3.5-5.1); Total Protein 6.1 G/DL (6.4-8.2)
[2022-01-17 07:28] LABS: Platelet Estimate Decreased
[2022-01-17] MEDS ORDERED: MAGNESIUM SULF RIDER 4 GM/100 ML PREMIX IV ONE (08:00)
[2022-01-17] MEDS ORDERED: propofoL 200 MG/20 ML VIAL IV ONE (08:40)
[2022-01-17] MEDS ORDERED: LIDOCAINE 2% 5 ML VIAL ONE (08:40)
[2022-01-17 11:08] LABS: Hemoglobin A1 (Alkaline) 97.7 % (96.5-98.5); Hemoglobin A2 (Alkaline) 2.3 % (1.5-3.5)
[2022-01-17] MEDS: LORATADINE 10 MG TABLET PO SCH (11:30)
[2022-01-17] MEDS: PROPRANOLOL 10 MG TABLET PO SCH ×2 (11:30→20:36)
[2022-01-17] MEDS: MULTIVITAMIN (CENTRUM) TABLET PO SCH (11:30)
[2022-01-17] MEDS: THIAMINE INJ 100 MG, FOLIC ACID INJ 1 MG in SODIUM CHLORIDE 0.9% 1,000 ML IV SCH (11:30)
[2022-01-17] MEDS: PARoxetine 10 MG TABLET PO SCH (11:30)
[2022-01-17] MEDS: NICOTINE 21 MG/24 HR PATCH TRANSDERM SCH (11:30)
[2022-01-17] MEDS: LACTATED RINGERS 1,000 ML IV SCH ×2 (12:21→19:49)
[2022-01-17] MEDS: MELATONIN 3 MG TABLET PO SCH (20:36)
[2022-01-18] MEDS: PANTOPRAZOLE INJ 200 MG in SODIUM CHLORIDE 0.9% 250 ML IV SCH (02:16)
[2022-01-18 08:45] LABS: Eosinophils # 0.2 10*3/uL (0.0-0.87); Eosinophils % 2.7 % (0.00-10.9); Hematocrit 25.2 VOL% (35.7-47.0); Immature Granulocytes % 0.5 %; Immature Granulocytes Absolute 0.03 #; Lymphocytes % 15.7 % (21.3-54.2); Mean Corpuscular HGB Conc 31.7 GM/DL (32-36); Mean Corpuscular Volume 94.7 FL (87-102); Mean Platelet Volume 10.6 FL (9.6-12.0); Monocytes # 0.5 10*3/uL (0.11-0.8); Monocytes % 8.5 % (1.7-12.7); Neutrophils % 72.6 % (38.7-73.9); Platelet Count 62 T/CUMM (130-400); Red Blood Count 2.66 MC/CUMM (3.8-5.5); Red Cell Distribution Width 19.2 % (9.3-17.3); White Blood Count 6.4 T/CUMM (4-12)
[2022-01-18] MEDS: NICOTINE 21 MG/24 HR PATCH TRANSDERM SCH (08:54)
[2022-01-18] MEDS: PANTOPRAZOLE 40 MG TABLET PO SCH ×2 (08:54→20:57)
[2022-01-18] MEDS: THIAMINE 100 MG TABLET PO SCH (08:54)
[2022-01-18] MEDS: MULTIVITAMIN (CENTRUM) TABLET PO SCH (08:54)
[2022-01-18] MEDS: PARoxetine 10 MG TABLET PO SCH (08:54)
[2022-01-18] MEDS: LORATADINE 10 MG TABLET PO SCH (08:54)
[2022-01-18] MEDS: FOLIC ACID 1 MG TABLET PO SCH (08:55)
[2022-01-18] MEDS: PROPRANOLOL 10 MG TABLET PO SCH ×3 (08:55→20:57)
[2022-01-18 08:57] LABS: Bilirubin,Total 1.7 MG/DL (0.20-1.00); Calcium 8.4 MG/DL (8.5-10.1); Osmolality,Calculated 268.1 MOS/KG (273-304); Potassium 3.6 MMOL/L (3.5-5.1); Total Protein 6.2 G/DL (6.4-8.2)
[2022-01-18] MEDS: cefTRIAXone 1,000 MG in SODIUM CHLORIDE 0.9% 100 ML IV SCH (09:02)
[2022-01-18 09:03] LABS: Platelet Estimate Decreased
[2022-01-18] MEDS ORDERED: FUROSEMIDE 40 MG/4 ML VIAL IV ONE (12:39)
[2022-01-18] MEDS: methylPREDNISolone SOD SUC 40 MG/1 ML VIAL IV SCH (16:19)
[2022-01-18] MEDS: MELATONIN 3 MG TABLET PO SCH (20:57)
[2022-01-19] MEDS: methylPREDNISolone SOD SUC 40 MG/1 ML VIAL IV SCH ×2 (04:01→15:19)
[2022-01-19 06:32] LABS: Hematocrit 23.8 VOL% (35.7-47.0); Hemoglobin 7.7 GM/DL (12.0-16.0); Immature Granulocytes % 0.6 %; Immature Granulocytes Absolute 0.02 #; Lymphocytes # 0.5 10*3/uL (1.4-4.0); Lymphocytes % 15.2 % (21.3-54.2); Mean Corpuscular HGB Conc 32.4 GM/DL (32-36); Mean Platelet Volume 11.3 FL (9.6-12.0); Monocytes # 0.2 10*3/uL (0.11-0.8); Monocytes % 5.2 % (1.7-12.7); Platelet Count 49 T/CUMM (130-400); Red Blood Count 2.56 MC/CUMM (3.8-5.5); Red Cell Distribution Width 18.5 % (9.3-17.3); White Blood Count 3.3 T/CUMM (4-12)
[2022-01-19 06:42] LABS: Calcium 8.5 MG/DL (8.5-10.1); Osmolality,Calculated 271.1 MOS/KG (273-304); Potassium 3.4 MMOL/L (3.5-5.1)
[2022-01-19 06:50] LABS: Hypochromia Slight; Microcytosis Slight; Platelet Estimate Decreased
[2022-01-19] MEDS ORDERED: MAGNESIUM SULF RIDER 4 GM/100 ML PREMIX IV ONE (08:30)
[2022-01-19] MEDS ORDERED: POTASSIUM CHLORIDE 20 MEQ TABLET PO ONE (08:30)
[2022-01-19] MEDS: LACTATED RINGERS 1,000 ML IV SCH (08:39)
[2022-01-19] MEDS: MULTIVITAMIN (CENTRUM) TABLET PO SCH (08:41)
[2022-01-19] MEDS: FOLIC ACID 1 MG TABLET PO SCH (08:41)
[2022-01-19] MEDS: PANTOPRAZOLE 40 MG TABLET PO SCH ×2 (08:41→20:22)
[2022-01-19] MEDS: PARoxetine 10 MG TABLET PO SCH (08:41)
[2022-01-19] MEDS: AZITHROMYCIN 250 MG TABLET PO SCH (08:41)
[2022-01-19] MEDS: THIAMINE 100 MG TABLET PO SCH (08:41)
[2022-01-19] MEDS: LORATADINE 10 MG TABLET PO SCH (08:41)
[2022-01-19] MEDS: PROPRANOLOL 10 MG TABLET PO SCH ×3 (08:42→20:22)
[2022-01-19] MEDS: NICOTINE 21 MG/24 HR PATCH TRANSDERM SCH (08:42)
[2022-01-19] MEDS: cefTRIAXone 1,000 MG in SODIUM CHLORIDE 0.9% 100 ML IV SCH (08:42)
[2022-01-19] MEDS ORDERED: SODIUM CHLORIDE 0.9% 1,000 ML IV PRN (09:33)
[2022-01-19] MEDS ORDERED: FUROSEMIDE 40 MG/4 ML VIAL IV ONE (10:46)
[2022-01-19] MEDS ORDERED: FUROSEMIDE 20 MG/2 ML VIAL IV ONE (18:40)
[2022-01-19 19:36] LABS: Hematocrit 30.4 VOL% (35.7-47.0); Hemoglobin 9.9 GM/DL (12.0-16.0)
[2022-01-19] MEDS: MELATONIN 3 MG TABLET PO SCH (20:22)
[2022-01-20] MEDS: methylPREDNISolone SOD SUC 40 MG/1 ML VIAL IV SCH (03:40)
[2022-01-20 06:57] LABS: Eosinophils % 0.3 % (0.00-10.9); Hematocrit 28.2 VOL% (35.7-47.0); Hemoglobin 9.2 GM/DL (12.0-16.0); Immature Granulocytes % 0.5 %; Immature Granulocytes Absolute 0.04 #; Lymphocytes # 0.8 10*3/uL (1.4-4.0); Lymphocytes % 9.5 % (21.3-54.2); Mean Corpuscular HGB Conc 32.6 GM/DL (32-36); Mean Corpuscular Volume 91.9 FL (87-102); Mean Platelet Volume 11.4 FL (9.6-12.0); Monocytes # 0.4 10*3/uL (0.11-0.8); Monocytes % 4.3 % (1.7-12.7); Neutrophils % 85.4 % (38.7-73.9); Platelet Count 64 T/CUMM (130-400); Red Blood Count 3.07 MC/CUMM (3.8-5.5); Red Cell Distribution Width 18.3 % (9.3-17.3); White Blood Count 8.6 T/CUMM (4-12)
[2022-01-20 07:17] LABS: Hypochromia Slight; Microcytosis Slight; Platelet Estimate Decreased
[2022-01-20 07:20] LABS: Albumin 3.1 G/DL (3.4-5.0); Bilirubin,Total 1.4 MG/DL (0.20-1.00); Calcium 8.9 MG/DL (8.5-10.1); Potassium 3.4 MMOL/L (3.5-5.1); Total Protein 6.6 G/DL (6.4-8.2)
[2022-01-20] MEDS: NICOTINE 21 MG/24 HR PATCH TRANSDERM SCH (08:59)
[2022-01-20] MEDS: FOLIC ACID 1 MG TABLET PO SCH (09:00)
[2022-01-20] MEDS: PANTOPRAZOLE 40 MG TABLET PO SCH (09:00)
[2022-01-20] MEDS: AZITHROMYCIN 250 MG TABLET PO SCH (09:00)
[2022-01-20] MEDS: GABAPENTIN 300 MG CAPSULE PO PRN (09:00)
[2022-01-20] MEDS: PARoxetine 10 MG TABLET PO SCH (09:00)
[2022-01-20] MEDS: MULTIVITAMIN (CENTRUM) TABLET PO SCH (09:00)
[2022-01-20] MEDS: PROPRANOLOL 10 MG TABLET PO SCH (09:00)
[2022-01-20] MEDS: LORATADINE 10 MG TABLET PO SCH (09:01)
[2022-01-20] MEDS: THIAMINE 100 MG TABLET PO SCH (09:01)
[2022-01-20] MEDS: cefTRIAXone 1,000 MG in SODIUM CHLORIDE 0.9% 100 ML IV SCH (09:01)
[2022-01-20] MEDS ORDERED: POTASSIUM CHLORIDE 20 MEQ TABLET PO ONE (10:15)
[2022-01-20 11:10] VITALS: BP 127/46
== END 2022-01-20 13:40 | disposition home or self-care (01) | DRG 432 ==
LOC: N.ED 21:29 → N.EDINP 01-16 01:08 → SUATTDRO 01-16 01:08 → N.3E 01-16 11:26
PROVIDERS: ADMIT Internal Medicine; ATTEND Internal Medicine

== ENCOUNTER 2022-02-04 15:39 | Inpatient (IN) ==
[2022-02-04] MEDS ORDERED: ALBUTEROL/IPRATROPIUM 3 ML NEB RESP TX STA ×2 (16:05→16:19)
[2022-02-04] MEDS ORDERED: cefTRIAXone 2,000 MG in SODIUM CHLORIDE 0.9% 100 ML IV STA (16:11)
[2022-02-04] MEDS ORDERED: methylPREDNISolone SOD SUC 125 MG/2 ML VIAL IV STA (16:11)
[2022-02-04 16:25] LABS: Basophils % 0.2 % (0.0-0.8); Eosinophils # 0.1 10*3/uL (0.0-0.87); Eosinophils % 1.5 % (0.00-10.9); Hemoglobin 9.7 GM/DL (12.0-16.0); Immature Granulocytes % 0.7 %; Immature Granulocytes Absolute 0.04 #; Lymphocytes # 0.5 10*3/uL (1.4-4.0); Lymphocytes % 9.1 % (21.3-54.2); Mean Corpuscular HGB Conc 33.4 GM/DL (32-36); Mean Corpuscular Volume 90.6 FL (87-102); Mean Platelet Volume 11.1 FL (9.6-12.0); Monocytes # 0.5 10*3/uL (0.11-0.8); Monocytes % 10.1 % (1.7-12.7); Neutrophils % 78.4 % (38.7-73.9); Platelet Count 68 T/CUMM (130-400); Red Cell Distribution Width 19.9 % (9.3-17.3); White Blood Count 5.4 T/CUMM (4-12)
[2022-02-04 16:54] LABS: Albumin 3.2 G/DL (3.4-5.0); Bilirubin,Total 2.8 MG/DL (0.20-1.00); Calcium 8.3 MG/DL (8.5-10.1); Osmolality,Calculated 257.9 MOS/KG (273-304); Potassium 3.8 MMOL/L (3.5-5.1); Total Protein 7.3 G/DL (6.4-8.2)
[2022-02-04 17:04] LABS: Burr Cells Slight
[2022-02-04 17:05] LABS: Anisocytosis Slight; Platelet Estimate Decreased
[2022-02-04] MEDS ORDERED: FUROSEMIDE 40 MG/4 ML VIAL IV STA (17:14)
[2022-02-04 17:31] LABS: Arterial Base Excess iSTAT -1 MMOL/L (-2.5-2.5); Arterial Bicarbonate iSTAT 23.4 MMOL/L (20-26); Arterial O2 Saturation iSTAT 97 % (95-100); Arterial PCO2 iSTAT 37 MM HG (35-48); Arterial PO2 iSTAT 90 MM HG (80-95); Arterial Total CO2 iSTAT 24 MMO/L (23-27); Arterial pH iSTAT 7.414 (7.35-7.45)
[2022-02-04] MEDS ORDERED: ONDANSETRON 4 MG/2 ML VIAL IV PRN (18:07)
[2022-02-04] MEDS ORDERED: ACETAMINOPHEN 325 MG TABLET PO PRN (18:07)
[2022-02-04] MEDS ORDERED: MAGNESIUM SULF RIDER 4 GM/100 ML PREMIX IV PRN (18:14)
[2022-02-04] MEDS: ALBUTEROL/IPRATROPIUM 3 ML NEB RESP TX SCH (19:28)
[2022-02-04] MEDS ORDERED: ENOXAPARIN 40 MG/0.4 ML SYRINGE SUBCUT SCH (21:00)
[2022-02-04] MEDS: FUROSEMIDE 40 MG/4 ML VIAL IV SCH (22:11)
[2022-02-04] MEDS: methylPREDNISolone SOD SUC 40 MG/1 ML VIAL IV SCH (22:11)
[2022-02-04] MEDS: DOCUSATE SODIUM 100 MG CAPSULE PO SCH (22:14)
[2022-02-04] MEDS: NICOTINE 14 MG/24 HR PATCH TRANSDERM SCH (22:14)
[2022-02-04] MEDS: guaiFENesin/DM ER 600-30 MG TABLET PO SCH (22:14)
[2022-02-04] MEDS: LEVOFLOXACIN INJ 500 MG/100 ML PREMIX IV SCH (22:15)
[2022-02-05] MEDS: ALBUTEROL/IPRATROPIUM 3 ML NEB RESP TX SCH ×4 (00:10→20:50)
[2022-02-05 05:34] LABS: Hematocrit 28.8 VOL% (35.7-47.0); Hemoglobin 9.8 GM/DL (12.0-16.0); Immature Granulocytes % 0.4 %; Immature Granulocytes Absolute 0.01 #; Lymphocytes # 0.3 10*3/uL (1.4-4.0); Lymphocytes % 11.9 % (21.3-54.2); Mean Platelet Volume 10.9 FL (9.6-12.0); Monocytes # 0.1 10*3/uL (0.11-0.8); Monocytes % 3.3 % (1.7-12.7); Neutrophils % 84.4 % (38.7-73.9); Red Cell Distribution Width 19.6 % (9.3-17.3)
[2022-02-05 05:42] LABS: Platelet Count 47 T/CUMM (130-400); White Blood Count 2.4 T/CUMM (4-12)
[2022-02-05 05:59] LABS: Hypochromia Slight; Platelet Estimate Decreased
[2022-02-05 06:17] LABS: Albumin 2.9 G/DL (3.4-5.0); Bilirubin,Total 1.7 MG/DL (0.20-1.00); Calcium 8.6 MG/DL (8.5-10.1); Osmolality,Calculated 261.9 MOS/KG (273-304); Potassium 3.2 MMOL/L (3.5-5.1); Risk Ratio 2.92; Thyroid Stimulating Hormone 0.991 uIU/ml (0.358-3.74); Total Protein 7.1 G/DL (6.4-8.2); VLDL Cholesterol 22.4 MG/DL
[2022-02-05] MEDS: MAGNESIUM SULF RIDER 2 GM/50 ML PREMIX IV PRN (06:25)
[2022-02-05] MEDS: POTASSIUM CHLORIDE 20 MEQ TABLET PO PRN ×4 (06:39→14:28)
[2022-02-05] MEDS: guaiFENesin/DM ER 600-30 MG TABLET PO SCH ×2 (09:34→21:55)
[2022-02-05] MEDS: FUROSEMIDE 40 MG/4 ML VIAL IV SCH ×2 (09:35→21:31)
[2022-02-05] MEDS: methylPREDNISolone SOD SUC 40 MG/1 ML VIAL IV SCH ×2 (09:37→21:30)
[2022-02-05] MEDS: DOCUSATE SODIUM 100 MG CAPSULE PO SCH ×2 (09:38→21:30)
[2022-02-05] MEDS: NICOTINE 14 MG/24 HR PATCH TRANSDERM SCH (21:32)
[2022-02-05] MEDS: LEVOFLOXACIN INJ 500 MG/100 ML PREMIX IV SCH (21:33)
[2022-02-06 05:43] LABS: Hematocrit 27.5 VOL% (35.7-47.0); Hemoglobin 9.2 GM/DL (12.0-16.0); Immature Granulocytes % 0.4 %; Immature Granulocytes Absolute 0.03 #; Lymphocytes # 0.5 10*3/uL (1.4-4.0); Lymphocytes % 6.4 % (21.3-54.2); Mean Corpuscular HGB Conc 33.5 GM/DL (32-36); Mean Corpuscular Volume 89.9 FL (87-102); Monocytes # 0.2 10*3/uL (0.11-0.8); Monocytes % 2.5 % (1.7-12.7); Neutrophils % 90.7 % (38.7-73.9); Platelet Count 52 T/CUMM (130-400); Red Blood Count 3.06 MC/CUMM (3.8-5.5); White Blood Count 7.3 T/CUMM (4-12)
[2022-02-06 06:19] LABS: Bilirubin,Total 1.3 MG/DL (0.20-1.00); Calcium 8.6 MG/DL (8.5-10.1); Osmolality,Calculated 269.5 MOS/KG (273-304); Potassium 3.3 MMOL/L (3.5-5.1)
[2022-02-06 07:09] LABS: Band Neutrophils 5 % (0-10); Eosinophils 1 % (0-10); Hypochromia Slight; Lymphocytes 5 % (20-55); Total Cells Counted 100
[2022-02-06 07:10] LABS: Anisocytosis 1+; Ovalocytes Slight; Platelet Estimate Decreased
[2022-02-06] MEDS: ALBUTEROL/IPRATROPIUM 3 ML NEB RESP TX SCH ×4 (07:34→20:28)
[2022-02-06] MEDS ORDERED: POTASSIUM CHLORIDE 20 MEQ TABLET PO ONE (08:45)
[2022-02-06] MEDS: guaiFENesin/DM ER 600-30 MG TABLET PO SCH ×2 (09:19→21:14)
[2022-02-06] MEDS: FUROSEMIDE 40 MG/4 ML VIAL IV SCH ×2 (09:21→21:14)
[2022-02-06] MEDS: methylPREDNISolone SOD SUC 40 MG/1 ML VIAL IV SCH ×2 (09:23→21:13)
[2022-02-06] MEDS: DOCUSATE SODIUM 100 MG CAPSULE PO SCH ×2 (09:24→21:14)
[2022-02-06] MEDS: PARoxetine 10 MG TABLET PO SCH (14:22)
[2022-02-06] MEDS: MELATONIN 3 MG TABLET PO SCH (21:13)
[2022-02-06] MEDS: PANTOPRAZOLE 40 MG TABLET PO SCH (21:14)
[2022-02-06] MEDS: LEVOFLOXACIN INJ 500 MG/100 ML PREMIX IV SCH (21:18)
[2022-02-06] MEDS: NICOTINE 14 MG/24 HR PATCH TRANSDERM SCH (21:18)
[2022-02-07] MEDS: ALBUTEROL/IPRATROPIUM 3 ML NEB RESP TX SCH ×5 (02:00→19:35)
[2022-02-07 05:43] LABS: Hematocrit 26.9 VOL% (35.7-47.0); Hemoglobin 8.7 GM/DL (12.0-16.0); Immature Granulocytes % 0.4 %; Immature Granulocytes Absolute 0.02 #; Lymphocytes # 0.3 10*3/uL (1.4-4.0); Lymphocytes % 6.8 % (21.3-54.2); Mean Corpuscular HGB Conc 32.3 GM/DL (32-36); Mean Corpuscular Volume 93.4 FL (87-102); Mean Platelet Volume 12.2 FL (9.6-12.0); Monocytes # 0.2 10*3/uL (0.11-0.8); Monocytes % 3.4 % (1.7-12.7); Neutrophils % 89.4 % (38.7-73.9); Platelet Count 47 T/CUMM (130-400); Red Blood Count 2.88 MC/CUMM (3.8-5.5); Red Cell Distribution Width 20.6 % (9.3-17.3)
[2022-02-07 06:09] LABS: Hypochromia Slight; Microcytosis Slight; Platelet Estimate Decreased
[2022-02-07 06:23] LABS: Calcium 8.5 MG/DL (8.5-10.1); Osmolality,Calculated 281.8 MOS/KG (273-304); Potassium 3.5 MMOL/L (3.5-5.1)
[2022-02-07] MEDS: POTASSIUM CHLORIDE 20 MEQ TABLET PO PRN (09:40)
[2022-02-07] MEDS: guaiFENesin/DM ER 600-30 MG TABLET PO SCH ×2 (09:49→21:49)
[2022-02-07] MEDS: PARoxetine 10 MG TABLET PO SCH (09:50)
[2022-02-07] MEDS: LORATADINE 10 MG TABLET PO SCH (09:51)
[2022-02-07] MEDS: DOCUSATE SODIUM 100 MG CAPSULE PO SCH ×2 (09:52→21:49)
[2022-02-07] MEDS: PANTOPRAZOLE 40 MG TABLET PO SCH ×2 (09:52→21:49)
[2022-02-07] MEDS: methylPREDNISolone SOD SUC 40 MG/1 ML VIAL IV SCH ×2 (09:53→22:14)
[2022-02-07] MEDS: FUROSEMIDE 40 MG/4 ML VIAL IV SCH ×2 (09:57→22:13)
[2022-02-07] MEDS: MAGNESIUM SULF RIDER 2 GM/50 ML PREMIX IV PRN (10:02)
[2022-02-07] MEDS ORDERED: GABAPENTIN 300 MG CAPSULE PO PRN (12:11)
[2022-02-07] MEDS: PROPRANOLOL 10 MG TABLET PO SCH ×2 (17:54→21:50)
[2022-02-07] MEDS: NICOTINE 14 MG/24 HR PATCH TRANSDERM SCH (21:48)
[2022-02-07] MEDS: MELATONIN 3 MG TABLET PO SCH (21:48)
[2022-02-07] MEDS: LEVOFLOXACIN INJ 500 MG/100 ML PREMIX IV SCH (21:54)
[2022-02-08] MEDS: ALBUTEROL/IPRATROPIUM 3 ML NEB RESP TX SCH ×3 (00:21→13:18)
[2022-02-08 05:40] LABS: Hematocrit 31.3 VOL% (35.7-47.0); Hemoglobin 10.3 GM/DL (12.0-16.0); Immature Granulocytes % 0.8 %; Immature Granulocytes Absolute 0.05 #; Lymphocytes # 0.6 10*3/uL (1.4-4.0); Lymphocytes % 10.7 % (21.3-54.2); Mean Corpuscular HGB Conc 32.9 GM/DL (32-36); Mean Corpuscular Volume 93.2 FL (87-102); Mean Platelet Volume 11.9 FL (9.6-12.0); Monocytes # 0.3 10*3/uL (0.11-0.8); Monocytes % 4.2 % (1.7-12.7); Neutrophils % 84.3 % (38.7-73.9); Platelet Count 51 T/CUMM (130-400); Red Blood Count 3.36 MC/CUMM (3.8-5.5); Red Cell Distribution Width 20.7 % (9.3-17.3); White Blood Count 5.9 T/CUMM (4-12)
[2022-02-08 06:03] LABS: Calcium 9.2 MG/DL (8.5-10.1); Osmolality,Calculated 281.8 MOS/KG (273-304); Potassium 3.5 MMOL/L (3.5-5.1)
[2022-02-08 06:14] LABS: Platelet Estimate Decreased
[2022-02-08] MEDS: POTASSIUM CHLORIDE 20 MEQ TABLET PO PRN (10:18)
[2022-02-08] MEDS: guaiFENesin/DM ER 600-30 MG TABLET PO SCH (10:20)
[2022-02-08] MEDS: DOCUSATE SODIUM 100 MG CAPSULE PO SCH (10:20)
[2022-02-08] MEDS: PANTOPRAZOLE 40 MG TABLET PO SCH (10:21)
[2022-02-08] MEDS: PARoxetine 10 MG TABLET PO SCH (10:21)
[2022-02-08] MEDS: PROPRANOLOL 10 MG TABLET PO SCH ×2 (10:23→15:20)
[2022-02-08] MEDS: LORATADINE 10 MG TABLET PO SCH (10:23)
[2022-02-08] MEDS: methylPREDNISolone SOD SUC 40 MG/1 ML VIAL IV SCH (10:24)
[2022-02-08] MEDS: FUROSEMIDE 40 MG/4 ML VIAL IV SCH (10:26)
[2022-02-08 13:00] VITALS: BP 133/48
== END 2022-02-08 16:03 | disposition swing bed (61) | DRG 291 ==
LOC: N.ED 15:39 → N.EDINP 18:07 → SUATTDRO 18:07 → N.EDINP 20:29 → N.TELEN 20:48
PROVIDERS: ADMIT Hospitalist; ATTEND Internal Medicine